=== PATIENT | male | born 1950 | race Caucasian/White ===

== ENCOUNTER 2017-11-20 01:06 | Observation (INO) ==
[2017-11-20] MEDS ORDERED: ASPIRIN PO ONE (01:19)
[2017-11-20] MEDS: NS 1000 ML 1,000 ML IV SCH ×2 (01:20→13:01)
[2017-11-20] MEDS ORDERED: ASPIRIN ONE (01:20)
[2017-11-20] MEDS ORDERED: NITROSTAT SL PRN (01:39)
[2017-11-20 01:40] LABS: BASOPHILS # (AUTO) 0.1 X10^3/uL (0.0-0.1); EOSINOPHILS # (AUTO) 0.6 x10^3/uL (0.0-0.2); EOSINOPHILS % (AUTO) 5.6 % (0.9-2.9); HEMATOCRIT 43.1 % (42.0-54.0); HEMOGLOBIN 15.3 g/dL (13.5-18.0); LYMPHOCYTES # (AUTO) 2.7 X10^3/uL (1.3-2.9); LYMPHOCYTES % (AUTO) 26.8 % (21.0-51.0); MEAN CORPUSCULAR HEMOGLOBIN 32.5 pg (27.0-34.0); MEAN CORPUSCULAR HGB CONC 35.5 g/dL (33.0-35.0); MEAN CORPUSCULAR VOLUME 91.6 fL (80.0-100.0); MEAN PLATELET VOLUME 7.9 fL (7.4-11.0); MONOCYTES # (AUTO) 0.8 x10^3/uL (0.3-0.8); MONOCYTES % (AUTO) 7.7 % (0.0-13.0); NEUTROPHILS # (AUTO) 5.9 x10^3/uL (2.2-4.8); NEUTROPHILS % (AUTO) 58.9 % (42.0-75.0); PLATELET COUNT 192 X10^3/uL (150.0-450.0); RED CELL DISTRIBUTION WIDTH 13.3 % (11.6-16.5)
--- NOTE | 2017-11-20 01:48 | RAD ---
Chest AP portable Indication: Chest pain Comparison: 03/31/2016 Findings: Prominent heart size with chronic lung changes of COPD suggested. Postsurgical change in de generative change of the right shoulder noted. There is no pneumothorax, effusion or consolidation. Impression: Prominent heart size and chronic lung change without other acute chest process Reported By:
--- NOTE | 2017-11-20 01:52 | DR.CP ---
HPI Time Seen Time Seen by Provider: 11/20/17 01:34 Complaint Chief Complaint Doctor Comments: Presenting with chest pain onset at about 220 hrs while in bed. It was located centrally and was going to his back between his shoulder blades. He describes it as being pressure like. He had no SOB, diaphoresis, palpitation or N/V. Source History Provided: Patient PMH PMH Past Medical History: Dyslipidemia and Hypertension Past Surgical History: Yes Surgical History: CABG/Valve Surgery (s/p AVR) Family History Family Medical History: Hypertension Social History Do you use any recreational Drugs:: No ROS Review of Systems Constitutional: No Symptoms Reported Eyes: No Symptoms Reported ENTM: No Symptoms Reported Respiratoy: No Symptoms Reported Cardiovascular: See HPI and Chest Pain Gastrointestinal/Abdominal: No Symptoms Reported Genitourinary: No Symptoms Reported Neurological: No Symptoms Reported Musculoskeletal: No Symptoms Reported Integumentary: No Symptoms Reported Hematologic/Lymphatic: No Symptoms Reported Endocrine: No Symptoms Reported Psychiatric: No Symptoms Reported All Other Systems: Reviewed and Negative PE Vitals Vitals: Temperature 98.3 F Pulse Rate [Apical] 52 Pulse Rate 63 Respiratory Rate 24 Blood Pressure [Left Arm] 135/71 Blood Pressure [Right Arm] 111/68 Blood Pressure 138/67 O2 Sat by Pulse Oximetry 98 General Limitations: No Limitations General Appearance: Alert and In No Apparent Distress Head Head Exam: Normal Inspection and Atraumatic Eyes Eye exam: Normal Appearance, PERRL and EOMI ENT ENT Exam: Normal Exam and Normal Oropharynx Chest Chest Inspection: Normal Inspection, Symmetric Chest Wall Rise and Other ( Vertical, midline thhoracotomy scar) Respiratory Respiratory Exam: Normal Lung Sounds Bilat Cardiovascular Cardiovascular Exam: Regular Rate, Normal Rhythm, +S1, +S2 and Other (end systolic valvular click, loudest at upper left sternal border. ) Abdominal Exam Abdominal Exam: Normal Inspection, Normal Bowel Sounds and Soft Extremities Extremities Exam: Normal Inspection and Normal Capillary Refill Back Back Exam: Normal Inspection Neurologic Neurological Exam: Alert and Oriented X3 Psychiatric Psychiatric Exam: Normal Affect and Normal Mood Skin Skin Exam: Warm and Dry COURSE Reevaluation 1st: Improved Education/Counseling Education/Counseling: Patient, Family and Counseling Educated On: Treatment, Diagnosis, Prognosis and Needs for Follow Up ROR Labs Reviewed Laboratory Results Reviewed?: Yes Result Diagrams: 11/20/17 01:29 11/20/17 01:29 Laboratory: WBC 10.0 X10^3/uL (3.6-10.0) 11/20/17 01: RBC 4.70 X10^6/uL (4.7-6.0) 11/20/17 01:29 Hgb 15.3 g/dL (13.5-18.0) 11/20/17 01: Hct 43.1 % (42.0-54.0) 11/20/17 01: MCV 91.6 fL (80.0-100.0) 11/20/17 01:29 MCH 32.5 pg (27.0-34.0) 11/20/17 01: MCHC 35.5 g/dL (33.0-35.0) H 11/20/17 01: RDW 13.3 % (11.6-16.5) 11/20/17 01: Plt Count 192 X10^3/uL (150.0-450.0) 11/20/17 01: MPV 7.9 fL (7.4-11.0) 11/20/17 01: Neut % (Auto) 58.9 % (42.0-75.0) 11/20/17 01: Lymph % (Auto) 26.8 % (21.0-51.0) 11/20/17 01: [place] % (Auto) 7.7 % (0.0-13.0) 11/20/17 01: Eos % (Auto) 5.6 % (0.9-2.9) H 11/20/17 01: Baso % (Auto) 1.0 % (0.2-1.0) 11/20/17 01:29 Neut # (Auto) 5.9 x10^3/uL (2.2-4.8) H 11/20/17 01: Lymph # (Auto) 2.7 X10^3/uL (1.3-2.9) 11/20/17 01: [place] # (Auto) 0.8 x10^3/uL (0.3-0.8) 11/20/17 01: Eos # (Auto) 0.6 x10^3/uL (0.0-0.2) H 11/20/17 01:29 Baso # (Auto) 0.1 X10^3/uL (0.0-0.1) 11/20/17 01:29 Absolute Nucleated RBC 0.0 /100WBC 11/20/17 01:29 INR Target Range - 11/20/17 01:29 INR 2.22 (0.8-1.3) H 11/20/17 01:29 APTT 38.3 SECONDS (22.9-36.5) H 11/20/17 01:29 PTT Comment - 11/20/17 01:29 Sodium 141 mmol/L (136-145) 11/20/17 01:29 Corrected Sodium 142 mmol/L (136-145) 11/20/17 01:29 Potassium 3.6 mmol/L (3.5-5.1) 11/20/17 01:29 Chloride 104 mmol/L (98-107) 11/20/17 01:29 Carbon Dioxide 30.1 mmol/L (21-32) 11/20/17 01:29 BUN 13 mg/dL (7-18) 11/20/17 01:29 Creatinine 0.87 mg/dL (0.70-1.30) 11/20/17 01:29 Est GFR (MDRD) Af Amer > 60 (>60) 11/20/17 01:29 Est GFR (MDRD) Non-Af > 60 (>60) 11/20/17 01:29 Glucose 123 mg/dL (65-99) H 11/20/17 01:29 Calcium 8.6 mg/dL (8.5-10.1) 11/20/17 01:29 Corrected Calcium TNP 11/20/17 01:29 Magnesium 1.8 mg/dL (1.7-2.9) 11/20/17 01:29 Total Bilirubin 0.30 mg/dL (0.2-1.0) 11/20/17 01:29 AST 21 Units/L (15-37) 11/20/17 01:29 ALT 31 Units/L (12-78) 11/20/17 01:29 Alkaline Phosphatase 74 Units/L (46-116) 11/20/17 01:29 Creatine Kinase 149 Units/L (39-308) 11/20/17 01:29 CK-MB (CK-2) 1.7 ng/mL (0-4.0) 11/20/17 01:29 CK/CKMB % Calc 1.1 % (<4) 11/20/17 01:29 Troponin I < 0.02 ng/mL (0-1.5) 11/20/17 01:29 Total Protein 6.6 g/dL (6.4-8.2) 11/20/17 01:29 Albumin 3.5 g/dL (3.4-5.0) 11/20/17 01:29 Globulin 3.1 g/dL (2.5-4.5) 11/20/17 01:29 Albumin/Globulin Ratio 1.1 Ratio (1.1-2.1) 11/20/17 01:29 XRAY XRAY Interpreted by: Radiologist XRAY Findings: CXR: No acute chest process, prominent heart size + chronic lung changes EKG Rate: 57 Rhythm: NSR Block: None Hypertrophy: LVH Diagnosis Discharge Problem: Chest pain
[2017-11-20 02:00] LABS: BLOOD UREA NITROGEN 13 mg/dL (7-18); CALCIUM 8.6 mg/dL (8.5-10.1); CARBON DIOXIDE 30.1 mmol/L (21-32); CHLORIDE 104 mmol/L (98-107); COR NA(FOR HYPERGLY) 142 mmol/L (136-145); CREATININE 0.87 mg/dL (0.70-1.30); SODIUM 141 mmol/L (136-145); TROPONIN I < 0.02 ng/mL (0-1.5); eGFR NON BLACK RACES > 60 (>60)
[2017-11-20 02:05] LABS: ALANINE AMINOTRANSFERASE 31 Units/L (12-78); ALBUMIN 3.5 g/dL (3.4-5.0); ALKALINE PHOSPHATASE 74 Units/L (46-116); ASPARTATE AMINO TRANSFERASE 21 Units/L (15-37); CKMB % 1.1 % (<4); CREATINE KINASE 149 Units/L (39-308); CREATINE KINASE MB 1.7 ng/mL (0-4.0); MAGNESIUM 1.8 mg/dL (1.7-2.9); TOTAL PROTEIN 6.6 g/dL (6.4-8.2)
--- NOTE | 2017-11-20 03:59 | DR.CP ---
HPI Time Seen Time Seen by Provider: 11/20/17 01:34 PCP Primary Care Physician: JORDAN Calderon Chief Complaint:: CONSTANT LEFT SIDED CHEST PAIN RADIATES UP INTO NECK AND BETWEEN SHOULDER BLADES. O/S @ 2200 LAST HS WHILE RESTING IN BED. DENIES ANY SOB , N/V/D, HEART PALPITATIONS. Self Treatment fo Chief Complaint: NONE Source History Provided: Patient Mode of Arrival Mode of Arrival: Ambulatory Timing Onset of Chief Complaint: 11/19/17 Location Chest Pain Radiation Location: Left Shoulder, Right Shoulder and Neck Associated Signs and Symptoms Associated Signs and Symptoms: None PMH PMH Past Medical History: Yes Past Medical History: Dyslipidemia and Hypertension Past Medical History Comment: THORACIC AORTIC ANEURYSM Past Surgical History: Yes Surgical History: CABG/Valve Surgery (s/p AVR) Past Surgical History Comment: HIP REPLACEMENT Family History History of Family Medical Conditions: Yes Family Medical History: Hypertension Social History Type of Tobacco Use: None Alcohol Use: None Do you use any recreational Drugs:: No Lives With: Spouse Lives Where: Home infectious screening Have you traveled outside the country in the last 6 months?: No Isolation: Standard PE Vitals Vitals: Temperature 98.3 F Pulse Rate [Apical] 52 Pulse Rate 63 Respiratory Rate 24 Blood Pressure [Left Arm] 135/71 Blood Pressure [Right Arm] 111/68 Blood Pressure 138/67 O2 Sat by Pulse Oximetry 98 COURSE Reevaluation 1st: Improved Education/Counseling Education/Counseling: Patient, Family, Education and Counseling Educated On: Treatment, Diagnosis, Prognosis and Needs for Follow Up ROR Labs Reviewed Result Diagrams: 11/20/17 01:29 11/20/17 01:29 Laboratory: WBC 10.0 X10^3/uL (3.6-10.0) 11/20/17 01:29 RBC 4.70 X10^6/uL (4.7-6.0) 11/20/17 01:29 Hgb 15.3 g/dL (13.5-18.0) 11/20/17 01:29 Hct 43.1 % (42.0-54.0) 11/20/17 01:29 MCV 91.6 fL (80.0-100.0) 11/20/17 01:29 MCH 32.5 pg (27.0-34.0) 11/20/17 01:29 MCHC 35.5 g/dL (33.0-35.0) H 11/20/17 01: RDW 13.3 % (11.6-16.5) 11/20/17: Plt Count 192 X10^3/uL (150.0-450.0) 11/20/17 01: MPV 7.9 fL (7.4-11.0) 11/20/17 01: Neut % (Auto) 58.9 % (42.0-75.0) 11/20/17 01: Lymph % (Auto) 26.8 % (21.0-51.0) 11/20/17 01: [place] % (Auto) 7.7 % (0.0-13.0) 11/20/17 01: Eos % (Auto) 5.6 % (0.9-2.9) H 11/20/17: Baso % (Auto) 1.0 % (0.2-1.0) 11/20/17 01: Neut # (Auto) 5.9 x10^3/uL (2.2-4.8) H 11/20/17 01: Lymph # (Auto) 2.7 X10^3/uL (1.3-2.9) 11/20/17 01: [place] # (Auto) 0.8 x10^3/uL (0.3-0.8) 11/20/17 01: Eos # (Auto) 0.6 x10^3/uL (0.0-0.2) H 11/20/17 01: Baso # (Auto) 0.1 X10^3/uL (0.0-0.1) 11/20/17 01: Absolute Nucleated RBC 0.0 /100WBC 11/20/17 01: INR Target Range - 11/20/17 01: INR 2.22 (0.8-1.3) H 11/20/17 01: APTT 38.3 SECONDS (22.9-36.5) H 11/20/17 01: PTT Comment - 11/20/17 01: Sodium 141 mmol/L (136-145) 11/20/17 01: Corrected Sodium 142 mmol/L (136-145) 11/20/17 01:29 Potassium 3.6 mmol/L (3.5-5.1) 11/20/17 01:29 Chloride 104 mmol/L (98-107) 11/20/17 01:29 Carbon Dioxide 30.1 mmol/L (21-32) 11/20/17 01:29 BUN 13 mg/dL (7-18) 11/20/17 01:29 Creatinine 0.87 mg/dL (0.70-1.30) 11/20/17 01:29 Est GFR (MDRD) Af Amer > 60 (>60) 11/20/17 01:29 Est GFR (MDRD) Non-Af > 60 (>60) 11/20/17 01:29 Glucose 123 mg/dL (65-99) H 11/20/17 01:29 Calcium 8.6 mg/dL (8.5-10.1) 11/20/17 01:29 Corrected Calcium TNP 11/20/17 01:29 Magnesium 1.8 mg/dL (1.7-2.9) 11/20/17 01:29 Total Bilirubin 0.30 mg/dL (0.2-1.0) 11/20/17 01:29 AST 21 Units/L (15-37) 11/20/17 01:29 ALT 31 Units/L (12-78) 11/20/17 01:29 Alkaline Phosphatase 74 Units/L (46-116) 11/20/17 01:29 Creatine Kinase 149 Units/L (39-308) 11/20/17 01:29 CK-MB (CK-2) 1.7 ng/mL (0-4.0) 11/20/17 01:29 CK/CKMB % Calc 1.1 % (<4) 11/20/17 01:29 Troponin I < 0.02 ng/mL (0-1.5) 11/20/17 01:29 Total Protein 6.6 g/dL (6.4-8.2) 11/20/17 01:29 Albumin 3.5 g/dL (3.4-5.0) 11/20/17 01:29 Globulin 3.1 g/dL (2.5-4.5) 11/20/17 01:29 Albumin/Globulin Ratio 1.1 Ratio (1.1-2.1) 11/20/17 01:29 Diagnosis Discharge Problem: Chest pain
[2017-11-20 04:50] VITALS: BMI 33.7
[2017-11-20 07:20] LABS: CKMB % 1.1 % (<4); CREATINE KINASE 127 Units/L (39-308); CREATINE KINASE MB 1.4 ng/mL (0-4.0); TROPONIN I < 0.02 ng/mL (0-1.5)
[2017-11-20] MEDS ORDERED: LOVENOX INJ 40 MG SYR SC SCH (09:00)
[2017-11-20] MEDS ORDERED: PROTONIX TAB 40 MG PO SCH (09:00)
[2017-11-20] MEDS ORDERED: SYNTHROID 50 mcg TAB PO SCH (09:00)
[2017-11-20] MEDS ORDERED: PRAVACHOL PO SCH (09:00)
[2017-11-20] MEDS ORDERED: NS 100 ML IV 100 ML IV ONE (11:33)
[2017-11-20 12:23] LABS: CKMB % 1.4 % (<4); CREATINE KINASE 122 Units/L (39-308); CREATINE KINASE MB 1.7 ng/mL (0-4.0); TROPONIN I < 0.02 ng/mL (0-1.5)
[2017-11-20 12:55] VITALS: BP 147/74
--- NOTE | 2017-11-20 14:01 | CT ---
HISTORY: Shortness of breath, chest Study: CT chest with contrast Comparison: Same day radiograph Technique: Multiple axial images of the chest were obtained from the thoracic inlet to the upper abdo men after the administration of IV contrast. Dose reduction techniques including Automated Exposure Control (AEC) and adjustment of mA and kV were utilized. Findings: Sternotomy changes noted related to previous aortic valve replacement. There is aneurysmal dilation o f ascending aorta measuring up to 5.3 cm measured perpendicular to the plane of blood flow. No eviden ce of dissection or intramural hematoma. Heart size within normal limits. No pericardial identified. Lungs are clear without infiltrate, or pneumothorax. Airways are patent no mass or adenopathy is iden tified. Multilevel discogenic degenerative changes and spondylosis is seen throughout the thoracic and lumbar spine. The visualized portions of the upper abdomen are grossly unremarkable. IMPRESSION: 1. Aneurysmal dilation of the ascending aorta measuring 5.3 cm. No evidence of dissection. 2. Post aortic valve repair. 3. No acute disease identified. Reported By:
[2017-11-20] MEDS ORDERED: COUMADIN TAB 7.5 MG PO SCH (21:00)
[2017-11-20] MEDS ORDERED: TOPROL XL PO SCH (21:00)
[2017-11-20] MEDS ORDERED: KLONOPIN TAB 0.5 MG PO SCH (21:00)
[2017-11-20] MEDS ORDERED: MOBIC TAB 15 MG PO SCH (21:00)
--- NOTE | 2018-01-08 22:50 | DR.CARTERS ---
Short Stay Summary - Short Stay Summary for: Short Stay Summary for Date of:: 11/20/17 - Admission Date Date of Admission: 11/20/17 - Discharge Date Discharge Date: 11/20/17 - Admission Diagnoses (1) Chest pain Status: Acute (2) Hyperlipidemia Status: Chronic (3) Hypertension Status: Chronic - Hospital Course Hospital Course: Mr. Milian presented to ER with complaints of chest pain that radiated up into neck and between shoulder blades. Patient rated pain a 5 on a scale of 0-10. Chest Xray obtained suggest COPD changes. EKG obtained: rate of 57 Sinus Rhythm with prolonged ME interval and abnormal R wave. Patient placed on continuous athletic monitor and supplemental oxygen per nasal canula @ 2 liters. Cardiac enzymes obtained. Patient given an ASA 325mg PO X 1 as well as NTG 0.4mg SL X 1. Patient admitted for observation. We continued to monitor patient with cardiac enzyme series and collection of EKG series. Patient placed on continuous athletic monitor and supplemental oxygen. Surgical History: CABG/Valve Surgery (s/p AVR). Medications: ASA 325mg po x1, Nitro Stat 0.4 mg SL Q 5 m PRN Chest Pain, Normal Saline 1000mls @ 75 mls HR, Lovenox 40mg SC Daily, Synthroid 50mcg PO Daily, Protonix 40mg PO Daily, Pravachol 40mg PO Daily, Klonopin 0.5mg PO HS, Mobic 15mg PO HS, Toprol XL 100mg PO HS, Coumadin 7.5mg PO HS. Abnormal Labs: Glucose 123. INR: 2.22. Chest Xray: 1. Aneurysmal dilation of the ascending aorta measuring 5.3 cm. No evidence of dissection. 2. Post aortic valve repair. 3. No acute disease identified. Patient was seen later that day and reported chest pain was resolved. He denied chest pain or shortness of breath. Cardiac enzymes and ekg's wnl. We planned for discharge. Instructions for medications and follow up were discussed with patient and family, both voiced understanding. Patient discharged home in stable condition with family. - Discharge Medications Discharge Medications: Home Medication List levothyroxine 1 tab PO DAILY 11/20/17 [History] pravastatin 1 tab PO DAILY 11/20/17 [History] Prescriptions: - Discharge Plan Disposition: 01 HOME, SELF-CARE Condition: Stable - Follow up/Referrals Follow up/Referrals: Terrell Raines [Primary Care Provider] - 12/03/17 2:20 pm - Instructions Instructions: How to Take Your Blood Pressure, [id number], What You Need to Know About Warfarin, Nonspecific Chest Pain, [id number], Hypertension, [id number] Additional Instructions: DIET TOLERATED. ACTIVITY TOLERATED. Forms: Patient Portal
== END 2017-11-20 16:15 | disposition home or self-care (01) ==
LOC: ER 01:07 → MED/SURG 01:07
PROVIDERS: ADMIT Internal Medicine; ATTEND Internal Medicine
DX: R07.89 Other chest pain; Z79.899 Other long term (current) drug therapy; R94.31 Abnormal electrocardiogram [ECG] [EKG]; Z79.01 Long term (current) use of anticoagulants; I10 Essential (primary) hypertension; E78.2 Mixed hyperlipidemia
CPT/HCPCS: 36415; 71010; 71045; 71260; 80053; 82550; 82553; 83735; 84484; 85025; 85610; 85730; 93005; 93041; 96365; 96367; 99284; A4216; A4222; G0378; J7030; J7050

== ENCOUNTER 2021-12-27 13:54 | Observation (INO) ==
[2021-12-27 14:07] VITALS: BMI 30.7
[2021-12-27] MEDS ORDERED: NS 1,000 ML IV 1,000 ML ONE ×2 (14:11→15:15)
[2021-12-27] MEDS ORDERED: NS 1,000 ML IV 1,000 ML IV ONE ×2 (14:22→15:17)
--- NOTE | 2021-12-27 14:26 | DR.DIZZY ---
HPI Time seen Time Seen by Provider: 12/27/21 14:25 PCP Primary Care Physician: LESTER HPI Comment HPI Comment: 71 y/o y/o male presented here as a referral from Dr. Tavera's office. He states that he has been loosing weight, has poor appetite, polydipsia and polyuria. in the last 6 moths. He felt so bad over the last few days that he went to see Dr. Tavera yesterday. He was sent over to outpt. lab yesterday. Upon reviewing those labs. he was sent to get outpt. IVF yesterday. His BS was 490, with a BUN at 32 and Cr. at 1.79. He was started on Metformin and Glipizide yesterday according to Dr. Tavera. He was seen in f/u in the office today with labs (Glucose- 296, BUN- 46, Cr- 2.27) and still hypotensive today. He has continued to take his BP meds. in the interim. Complaint Chief Complaint:: CK BP AT HOME TODAY AND IT WAS LOW, 88/57. PT STATES HE IS FEELING NAUSEATED, HEADACHE, LIGHT HEADED, DENIES FLU EXPOSURE Self Treatment fo Chief Complaint: TAKES BP MEDS AND DID TAKE HIS BP MEDS THIS MORNING. COVID-19 Coronavirus risk:travel/contact w/high risk person: No Has patient experienced Coronavirus symptoms: No Nurses Notes Reviewed Nurses Notes Review: Yes Source History Provided: Patient Mode of Arrival Mode of Arrival: Ambulatory Timing Onset of Chief Complaint: 12/25/21 Came on: Gradually Duration Duration: Constant Duration: Weeks Location of Weakness Weakness Location: Generalized Context Onset: At rest Does pt take pot. toxic medication?: No History of: DM Stroke Symptoms: None Modifying factors Worsens: Nothing Associated signs and symptoms Associated Signs and Symptoms: Weak PMH PMH Past Medical History: Yes Past Medical History: CHF, Diabetes, Dyslipidemia and Hypertension Past Medical History Comment: PROSTATE CANCER IN REMISSION X5 YRS Past Surgical History: Yes Surgical History: Joint Replacement and Ortho Surgery Past Surgical History Comment: MECHANICAL VALVE REPLACEMENT, PROSTATE CANCER REMOVAL Family History History of Family Medical Conditions: Yes Family Medical History: Cancer, [place], Coronary Artery Disease, Heart Failure and Hypertension Social History Does any household member use tobacco: No Alcohol Use: DAILY Do you use any recreational Drugs:: No Lives With: Spouse Lives Where: Home Travel Risk Coronavirus risk:travel/contact w/high risk person: No Has patient experienced Coronavirus symptoms: No Infectious screening In the last 2 months have you had wt loss of >10#?: NO Have you had fever, night sweats or hemotysis?: No Have you traveled outside the country in the last 6 months?: No Isolation: Standard ROS Review of Systems Constitutional: Malaise, Weakness, Loss of Appetite and Other (polydipsia) Eyes: No Symptoms Reported ENTM: No Symptoms Reported Respiratoy: No Symptoms Reported Cardiovascular: No Symptoms Reported Gastrointestinal/Abdominal: No Symptoms Reported Genitourinary: Other (polyuria) Neurological: No Symptoms Reported Musculoskeletal: No Symptoms Reported Integumentary: No Symptoms Reported Hematologic/Lymphatic: No Symptoms Reported Endocrine: No Symptoms Reported Psychiatric: No Symptoms Reported All Other Systems: Reviewed and Negative PE Vital Signs Vitals: Temperature 99.0 F Pulse Rate 75 Respiratory Rate 18 Blood Pressure [Left Arm] 169/96 Blood Pressure 84/52 O2 Sat by Pulse Oximetry 93 General Limitations: No Limitations General Appearance: Alert and In No Apparent Distress Head Head Exam: Normal Inspection, Atraumatic and Normocephalic Eyes Eye exam: Normal Appearance and EOMI ENT ENT Exam: Normal Exam, Normal Oropharynx and Normal External Ear Exam Neck Neck Exam: Normal Inspection, Full ROM and Trachea Midline Chest Chest Inspection: Normal Inspection and Symmetric Chest Wall Rise Respiratory Respiratory Exam: Normal Lung Sounds Bilat Cardiovascular Cardiovascular Exam: Regular Rate, Normal Rhythm, Normal Heart Sounds, +S1 and +S2 Abdominal Exam Abdominal Exam: Normal Inspection, Normal Bowel Sounds and Soft Rectal Rectal Exam: Deferred Extremeties Extremities Exam: Normal Inspection and Full ROM Back Back Exam: Normal Inspection and Full ROM Neurologic Neurological Exam: Alert and Oriented X3 Psychiatric Psychiatric Exam: Normal Affect and Normal Mood Skin Skin Exam: Dry, Intact and Normal Color COURSE Treatment Treatment: I discussed his test results with him and his daughter. I have also spoken with his PCP (Dr. Tavera). Admit orders have been written. I am with olding his BP meds, Metformin and Mobic. Reevaluation 1st: Unchanged Education/Counseling Education/Counseling: Patient, Family, Education and Counseling Educated On: Treatment, Diagnosis, Prognosis and Needs for Follow Up ROR Labs Reviewed Laboratory Results Reviewed?: Yes Result Diagrams: 12/27/21 14:20 Laboratory: WBC 15.5 X10^3/uL (3.6-10.0) H 12/27/21 14:20 RBC 4.43 X10^6/uL (4.7-6.0) L 12/27/21 14:20 Hgb 14.0 g/dL (13.5-18.0) 12/27/21 14:20 Hct 39.1 % (42.0-54.0) L 12/27/21 14:20 MCV 88.2 fL (80.0-100.0) 12/27/21 14:20 MCH 31.6 pg (27.0-34.0) 12/27/21 14:20 MCHC 35.8 g/dL (33.0-35.0) H 12/27/21 14:20 RDW 12.4 % (11.6-16.5) 12/27/21 14:20 Plt Count 243 X10^3/uL (150.0-450.0) 12/27/21 14:20 MPV 8.4 fL (7.4-11.0) 12/27/21 14:20 Neut % (Auto) 77.3 % (42.0-75.0) H 12/27/21 14:20 Lymph % (Auto) 12.3 % (21.0-51.0) L 12/27/21 14:20 [place] % (Auto) 7.1 % (0.0-13.0) 12/27/21 14:20 Eos % (Auto) 2.7 % (0.9-2.9) 12/27/21 14:20 Baso % (Auto) 0.6 % (0.2-1.0) 12/27/21 14:20 Neut # (Auto) 12.0 x10^3/uL (2.2-4.8) H 12/27/21 14:20 Lymph # (Auto) 1.9 X10^3/uL (1.3-2.9) 12/27/21 14:20 [place] # (Auto) 1.1 x10^3/uL (0.3-0.8) H 12/27/21 14:20 Eos # (Auto) 0.4 x10^3/uL (0.0-0.2) H 12/27/21 14:20 Baso # (Auto) 0.1 X10^3/uL (0.0-0.1) 12/27/21 14:20 Absolute Nucleated RBC 0.0 /100WBC 12/27/21 14:20 Creatine Kinase 104 Units/L (39-308) 12/27/21 14:20 Troponin I High Sens 11.0 ng/L (4.0-60.0) 12/27/21 14:20 SARS-CoV-2 (PCR) Negative (NEGATIVE) 12/27/21 14:40 Influenza Type A (PCR) Negative (NEGATIVE) 12/27/21 14:40 Influenza Type B (PCR) Negative (NEGATIVE) 12/27/21 14:40 RSV (PCR) Negative (NEGATIVE) 12/27/21 14:40 EKG Rate: 78 [place]: Normal Rhythm: NSR Block: None Hypertrophy: LVH Opioid Opioid Risk Tool Age ([place]annon box if 16-45): No History of Preadolescent Sexual Abuse: No Total: 0 Total Score Risk Category: Low Risk Copyright: [facility] predicting aberrant behaviors Discharge Plan Diagnosis Discharge Problem: Azotemia, Neutrophilic leukocytosis Type 2 diabetes mellitus with hyperglycemia Qualifiers: Diabetes mellitus terminal manager insulin use: without terminal manager use Qualified Code(s): E11.65 - Type 2 diabetes mellitus with hyperglycemia Benign prostatic hyperplasia Qualifiers: Lower urinary tract symptom presence: symptoms present Lower urinary tract symp romario detail: urinary frequency Qualified Code(s): N40.1 - Benign prostatic hyperplasia with lower urinary tract symptoms CAD (coronary artery disease) Qualifiers: Coronary Disease-Associated Artery/Lesion type: [place] artery [place] vs. transplanted heart: [place] heart Associated angina: without angina Qualified Code(s): I25.10 - Atherosclerotic heart disease of [place] coronary artery without angina pectoris Hypotension Qualifiers: Hypotension type: idiopathic hypotension Qualified Code(s): I95.0 - Idiopathic hypotension Discharge Plan Patient Disposition: 09 ADMITTED INPATIENT Condition: Stable Prescriptions: No Action meloxicam 15 MG tablet 15 mg PO HS clonazepam 0.5 MG tablet 0.5 mg PO HS metoprolol succinate 100 MG tablet extended release 24 hr 1 tab PO HS metformin 500 mg tablet 500 mg PO BID clonidine HCl 0.1 mg tablet 0.1 mg PO BID chlorthalidone 25 mg tablet 25 mg PO QDAY amlodipine 5 mg tablet 5 mg PO QDAY glipizide 2.5 mg tablet extended release 24hr 2.5 mg PO QDAY levothyroxine 50 mcg tablet 50 mcg PO QDAY pantoprazole 40 mg tablet,delayed release (DR/EC) 40 mg PO QDAY warfarin 5 mg tablet 5 mg PO QDAY oxybutynin chloride 5 mg tablet extended release 24hr 5 mg PO QDAY levofloxacin 750 mg tablet 750 mg PO QDAY Rx Instructions: STARTED ON 12/26/21 rosuvastatin 20 mg tablet 20 mg PO QPM Health Concerns: Post Hospitalization: new medications and changes needed to prevent readmission or further decline. Pt educated and given instructions on all concerns. Plan of Treatment: Continue with present treatment and follow up plan. Pt is to keep follow up appointment as instructed and take medications as ordered. Orders to Discharge Patient Discharge Orders: Transfer (Routine); Ordered 12/27/21 Ordered By: QUIN HESS Follow ups/Referrals Follow ups/Referrals: Andrea Tavera [Primary Care Provider] - 3 days
[2021-12-27 14:50] LABS: BASOPHILS # (AUTO) 0.1 X10^3/uL (0.0-0.1); BASOPHILS % (AUTO) 0.6 % (0.2-1.0); EOSINOPHILS # (AUTO) 0.4 x10^3/uL (0.0-0.2); EOSINOPHILS % (AUTO) 2.7 % (0.9-2.9); HEMATOCRIT 39.1 % (42.0-54.0); LYMPHOCYTES # (AUTO) 1.9 X10^3/uL (1.3-2.9); LYMPHOCYTES % (AUTO) 12.3 % (21.0-51.0); MEAN CORPUSCULAR HEMOGLOBIN 31.6 pg (27.0-34.0); MEAN CORPUSCULAR HGB CONC 35.8 g/dL (33.0-35.0); MEAN CORPUSCULAR VOLUME 88.2 fL (80.0-100.0); MEAN PLATELET VOLUME 8.4 fL (7.4-11.0); MONOCYTES # (AUTO) 1.1 x10^3/uL (0.3-0.8); MONOCYTES % (AUTO) 7.1 % (0.0-13.0); NEUTROPHILS % (AUTO) 77.3 % (42.0-75.0); RED BLOOD COUNT 4.43 X10^6/uL (4.7-6.0); RED CELL DISTRIBUTION WIDTH 12.4 % (11.6-16.5); WHITE BLOOD COUNT 15.5 X10^3/uL (3.6-10.0)
--- NOTE | 2021-12-27 16:21 | RAD ---
HISTORYHYPOTENSION Relevant Clinical InformationSTUDYCHEST, 1 VIEWCOMPARISONNone available.FINDINGSThe trachea is midline. The cardiac silhouette is mildly enlarged; status post median sternotomy. The right hemidiaphragm is elevated. Changes of chronic bronchitis/COPD are identified on this exam. The lungs are clear without focal infiltrate or effusion. The bony thorax is unremarkable.IMPRESSIONNo acute cardiopulmonary findings or changes. Enlarged cardiac silhouette. Changes of chronic bronchitis/COPD.Electronically signed by: CARLI SCHULTZ III (Dec 27, 2021 16:18:57)
[2021-12-27] MEDS ORDERED: LEVAQUIN TAB 750 MG PO SCH (16:28)
[2021-12-27] MEDS ORDERED: SYNTHROID 50 mcg TAB PO SCH (16:28)
[2021-12-27] MEDS ORDERED: GLUCOTROL PO SCH (17:00)
[2021-12-27 17:40] LABS: INR 2.58 (0.8-1.3)
[2021-12-27] MEDS: NS 1,000 ML IV 1,000 ML IV SCH (17:48)
[2021-12-27 18:16] LABS: BILIRUBIN,URINE NEGATIVE (NEGATIVE); BLOOD/HEMOGLOBIN,URINE 1+ (NEGATIVE); GLUCOSE, URINE NEGATIVE (NEGATIVE); KETONES,URINE NEGATIVE (NEGATIVE); LEUKOCYTE ESTERASE ,URINE 3+ (NEGATIVE); NITRITES,URINE NEGATIVE (NEGATIVE); PROTEIN,URINE 1+ (NEGATIVE); UROBILINOGEN,URINE NORMAL (NORMAL)
[2021-12-27 18:25] LABS: APPEARANCE,URINE HAZY (CLEAR); BACTERIA,URINE TRACE /HPF (NEGATIVE); COLOR,URINE YELLOW (YELLOW); SQUAMOUS EPITHELIAL CELL,UR RARE /HPF (NEGATIVE)
[2021-12-27] MEDS: TOPROL XL PO SCH (20:18)
[2021-12-27] MEDS: SNACK - Diabetic Appropriate PO SCH (20:41)
[2021-12-27] MEDS ORDERED: KLONOPIN TAB 0.5 MG PO SCH (21:00)
[2021-12-28] MEDS: NS 1,000 ML IV 1,000 ML IV SCH ×5 (01:44→16:36)
[2021-12-28 05:11] LABS: BASOPHILS # (AUTO) 0.1 X10^3/uL (0.0-0.1); BASOPHILS % (AUTO) 1.5 % (0.2-1.0); EOSINOPHILS # (AUTO) 0.5 x10^3/uL (0.0-0.2); EOSINOPHILS % (AUTO) 5.2 % (0.9-2.9); HEMOGLOBIN 12.3 g/dL (13.5-18.0); LYMPHOCYTES # (AUTO) 1.8 X10^3/uL (1.3-2.9); LYMPHOCYTES % (AUTO) 20.1 % (21.0-51.0); MEAN CORPUSCULAR HEMOGLOBIN 31.4 pg (27.0-34.0); MEAN CORPUSCULAR HGB CONC 35.3 g/dL (33.0-35.0); MEAN CORPUSCULAR VOLUME 88.8 fL (80.0-100.0); MONOCYTES # (AUTO) 0.8 x10^3/uL (0.3-0.8); MONOCYTES % (AUTO) 8.9 % (0.0-13.0); NEUTROPHILS # (AUTO) 5.7 x10^3/uL (2.2-4.8); NEUTROPHILS % (AUTO) 64.3 % (42.0-75.0); RED BLOOD COUNT 3.94 X10^6/uL (4.7-6.0); RED CELL DISTRIBUTION WIDTH 12.7 % (11.6-16.5); WHITE BLOOD COUNT 8.8 X10^3/uL (3.6-10.0)
[2021-12-28 05:21] LABS: ALANINE AMINOTRANSFERASE 30 Units/L (12-78); ALKALINE PHOSPHATASE 76 Units/L (46-116); ASPARTATE AMINO TRANSFERASE 31 Units/L (15-37); BLOOD UREA NITROGEN 37 mg/dL (7-18); CALCIUM 7.5 mg/dL (8.5-10.1); CARBON DIOXIDE 21.9 mmol/L (21-32); CHLORIDE 103 mmol/L (98-107); COR CA(FOR HYPOALB) 8.3 mg/dL (8.5-10.1); COR NA(FOR HYPERGLY) 136 mmol/L (136-145); CREATININE 1.21 mg/dL (0.70-1.30); SODIUM 133 mmol/L (136-145); eGFR NON BLACK RACES > 60 (>60)
[2021-12-28] MEDS ORDERED: GLUCOTROL PO SCH (07:00)
[2021-12-28] MEDS: CRESTOR TAB 10 MG PO SCH (08:05)
[2021-12-28] MEDS ORDERED: DUONEB 0.5 MG/3 MG (3 mL) NEB PRN (08:06)
[2021-12-28] MEDS: LEVAQUIN TAB 750 MG PO SCH (08:07)
[2021-12-28] MEDS: SYNTHROID 50 mcg TAB PO SCH (08:07)
[2021-12-28] MEDS: PROTONIX TAB 40 MG PO SCH (08:07)
--- NOTE | 2021-12-28 08:12 | DR.H&P ---
H&P History & Physical for Day of: H&P Date: 12/27/21 Chief Complaint Chief Complaint: Lightheaded, weakness Headache, nausea, decreased appetite Allergies Allergies Allergy/AdvReac Type Severity Reaction Status Date / Time No Known Drug Allergies Allergy Verified 07/26/21 10:25 History of Present Illness History of Present Illness: Pt is a 71 year old male past medical history Hypertension, Valvular heart disease, DMT2, presenting with acute hypotension after he checked his blood pressure at home and noticed it was low at 80s/50s. He also reports feeling lightheaded, nausea, headache, decreased appetite, and generalized weakness. In the ED, his blood pressure was noted to be 76/50. Labs/imaging: Wbc 15.5, Hgb 14, Plt 243, INR 2.58, Na 129, K 4.8, Creatinine 2.27, Glucose 296, Troponin negative, UA recommends culture, Urine culture pending, Acetone negative, COVID19/Flu/RSV negative, CXR was obtained: No acute cardiopulmonary findings or changes. Enlarged cardiac silhouette. Changes of chronic bronchitis/COPD. Pt received 2L bolus normal saline. Will start patient on IVF NS@125ml/h, antibiotics: IV Levaquin. Pt with A1c of 13.2, uncontrolled diabetes that is likely related to his symptoms and dehydration. Will start on glipizide and SSI. Pt does have RENETTA, will trend renal function, hold nephrotoxic agents. Hold blood pressure medication until blood pressure has stabilized. Restart all other home medications. Will continue to closely monitor and follow up labs in the morning. Past Medical History Past Medical History: CHF, Diabetes, Dyslipidemia and Hypertension Additional Medical History: Valvular Heart Disease, Thoracic Aortic Aneurysm, BPH, Elevated PSA, Previous Blood Transfusion Past Surgical History Surgical History: AAA Repair, CABG/Valve Surgery, Joint Replacement and Ortho Surgery Additional Surgical History: Left Hip Replacement, Bilateral Shoulder Surgery, Mechanical Heart Valve Family History Family Medical History: Cancer, [place], Coronary Artery Disease, Heart Failure and Hypertension Social History Does patient currently use any type of tobacco product: No Have you used tobacco products in the last 12 months: No Type of Tobacco Use: None Does any household member use tobacco: No Alcohol Use: DAILY Drug Use: None Medications Home Medications: No Known Drug Allergies Allergy (Verified 07/26/21 10:25) CONTINUE taking the following medications amlodipine 5 mg tablet 5 mg PO QDAY 12/27/21 [History] chlorthalidone 25 mg tablet 25 mg PO QDAY 12/27/21 [History] clonidine HCl 0.1 mg tablet 0.1 mg PO BID 12/27/21 [History] glipizide 2.5 mg tablet, extended release 24 hr 2.5 mg PO QDAY 12/27/21 [History] levofloxacin 750 mg tablet 750 mg PO QDAY 12/27/21 [History] levothyroxine 50 mcg tablet 50 mcg PO QDAY 12/27/21 [History] metformin 500 mg tablet 500 mg PO BID 12/27/21 [History] oxybutynin chloride 5 mg tablet,extended release 24 hr 5 mg PO QDAY 12/27/21 [History] pantoprazole 40 mg tablet,delayed release 40 mg PO QDAY 12/27/21 [History] rosuvastatin 20 mg tablet 20 mg PO QPM 12/27/21 [History] warfarin 5 mg tablet 5 mg PO QDAY 12/27/21 [History] Labs Result Diagrams: 12/28/21 04:48 12/28/21 04:48 Labs: Laboratory WBC 8.8 X10^3/uL (3.6-10.0) 12/28/21 04:48 RBC 3.94 X10^6/uL (4.7-6.0) L 12/28/21 04:48 Hgb 12.3 g/dL (13.5-18.0) L 12/28/21 04:48 Hct 35.0 % (42.0-54.0) L 12/28/21 04:48 MCV 88.8 fL (80.0-100.0) 12/28/21 04:48 MCH 31.4 pg (27.0-34.0) 12/28/21 04:48 MCHC 35.3 g/dL (33.0-35.0) H 12/28/21 04:48 RDW 12.7 % (11.6-16.5) 12/28/21 04:48 Plt Count 186 X10^3/uL (150.0-450.0) 12/28/21 04:48 MPV 8.0 fL (7.4-11.0) 12/28/21 04:48 Neut % (Auto) 64.3 % (42.0-75.0) 12/28/21 04:48 Lymph % (Auto) 20.1 % (21.0-51.0) L 12/28/21 04:48 [place] % (Auto) 8.9 % (0.0-13.0) 12/28/21 04:48 Eos % (Auto) 5.2 % (0.9-2.9) H 12/28/21 04:48 Baso % (Auto) 1.5 % (0.2-1.0) H 12/28/21 04:48 Neut # (Auto) 5.7 x10^3/uL (2.2-4.8) H 12/28/21 04:48 Lymph # (Auto) 1.8 X10^3/uL (1.3-2.9) 12/28/21 04:48 [place] # (Auto) 0.8 x10^3/uL (0.3-0.8) 12/28/21 04:48 Eos # (Auto) 0.5 x10^3/uL (0.0-0.2) H 12/28/21 04:48 Baso # (Auto) 0.1 X10^3/uL (0.0-0.1) 12/28/21 04:48 Absolute Nucleated RBC 0.0 /100WBC 12/28/21 04:48 PT 26.6 SECONDS (11.8-14.3) 12/27/21 14:20 INR Target Range - 12/27/21 14:20 INR 2.58 (0.8-1.3) H 12/27/21 14:20 Sodium 133 mmol/L (136-145) L 12/28/21 04:48 Corrected Sodium 136 mmol/L (136-145) 12/28/21 04:48 Potassium 4.3 mmol/L (3.5-5.1) 12/28/21 04:48 Chloride 103 mmol/L (98-107) 12/28/21 04:48 Carbon Dioxide 21.9 mmol/L (21-32) 12/28/21 04:48 BUN 37 mg/dL (7-18) H 12/28/21 04:48 Creatinine 1.21 mg/dL (0.70-1.30) 12/28/21 04:48 Est GFR (MDRD) Af Amer > 60 (>60) 12/28/21 04:48 Est GFR (MDRD) Non-Af > 60 (>60) 12/28/21 04:48 Glucose 220 mg/dL (65-99) H 12/28/21 04:48 POC Glucose (mg/dL) 202 mg/dL (65-99) H 12/28/21 05:23 Calcium 7.5 mg/dL (8.5-10.1) L 12/28/21 04:48 Corrected Calcium 8.3 mg/dL (8.5-10.1) L 12/28/21 04:48 Total Bilirubin 0.40 mg/dL (0.2-1.0) 12/28/21 04:48 AST 31 Units/L (15-37) 12/28/21 04:48 ALT 30 Units/L (12-78) 12/28/21 04:48 Alkaline Phosphatase 76 Units/L (46-116) 12/28/21 04:48 Creatine Kinase 104 Units/L (39-308) 12/27/21 14:20 Troponin I High Sens 11.0 ng/L (4.0-60.0) 12/27/21 14:20 Total Protein 6.0 g/dL (6.4-8.2) L 12/28/21 04:48 Albumin 3.0 g/dL (3.4-5.0) L 12/28/21 04:48 Globulin 3.0 g/dL (2.5-4.5) 12/28/21 04:48 Albumin/Globulin Ratio 1.0 Ratio (1.1-2.1) L 12/28/21 04:48 Total PSA < 0.13 ng/mL (0.13-4.0) L 12/27/21 14:20 Specimen Type Clean catch urine 12/27/21 18:00 Urine Color Yellow (YELLOW) 12/27/21 18:00 Urine Appearance Hazy (CLEAR) 12/27/21 18:00 Urine pH 5.0 (5.0 - 8.0) 12/27/21 18:00 Ur Specific [place] 1.020 (1.000-1.030) 12/27/21 18:00 Urine Protein 1+ (NEGATIVE) 12/27/21 18:00 Urine Glucose (UA) Negative (NEGATIVE) 12/27/21 18:00 Urine Ketones Negative (NEGATIVE) 12/27/21 18:00 Urine Blood 1+ (NEGATIVE) 12/27/21 18:00 Urine Nitrite Negative (NEGATIVE) 12/27/21 18:00 Urine Bilirubin Negative (NEGATIVE) 12/27/21 18:00 Urine Urobilinogen Normal (NORMAL) 12/27/21 18:00 Ur Leukocyte Esterase 3+ (NEGATIVE) 12/27/21 18:00 Urine RBC 5-10 /HPF (0-3) A 12/27/21 18:00 Urine WBC 20-30 /HPF (0-5) A 12/27/21 18:00 Ur Squamous Epith Cells Rare /HPF (NEGATIVE) 12/27/21 18:00 Urine Bacteria Trace /HPF (NEGATIVE) 12/27/21 18:00 Ur Culture Indicated? Yes/culture set up 12/27/21 18:00 Acetone, Semi-Quant Negative (NEGATIVE) 12/27/21 14:20 SARS-CoV-2 (PCR) Negative (NEGATIVE) 12/27/21 14:40 Influenza Type A (PCR) Negative (NEGATIVE) 12/27/21 14:40 Influenza Type B (PCR) Negative (NEGATIVE) 12/27/21 14:40 RSV (PCR) Negative (NEGATIVE) 12/27/21 14:40 Review of Systems Constitutional: Weakness Eyes: No Symptoms Reported ENT: No Symptoms Reported Respiratory: No Symptoms Reported Cardiovascular: No Symptoms Reported Gastrointestinal: Nausea Genitourinary: No Symptoms Reported Musculoskeletal: No Symptoms Reported Skin: No Symptoms Reported Neurological: No Symptoms Reported Physical Exam Vital Signs: Temperature 98.3 F Pulse Rate 70 Respiratory Rate 10 Blood Pressure [Left Arm] 169/96 Blood Pressure 112/60 O2 Sat by Pulse Oximetry 92 Oriented: Normal Eyes: Normal Ear: Normal Nose: Normal Throat: Normal Respiratory: Clear Throughout Cardiovascular: Normal : Normal Auscultation: Bowel Sounds: Normal Palpation: Normal Tenderness: Normal Skin: Decreased [place] Musculoskeletal: Normal Psychiatric: Normal Mood Description: Calm and Appropriate Affect: Normal Speech Pattern: Clear and Appropriate Assessment/Plan (1) Acute hypotension: Status: Acute Plan: Hold blood pressure medications IVF NS@125ml/h (2) Dehydration: Status: Acute (3) Type 2 diabetes mellitus with hyperglycemia: Qualifiers: Diabetes mellitus correction insulin use: without division human resources manager use Qualified Code(s): E11.65 - Type 2 diabetes mellitus with hyperglycemia Status: Acute Plan: Start glipizide, continue SSI (4) Cystitis: Status: Acute Plan: IV Levaquin (5) Hyponatremia: Status: Acute Plan: IVF NS (6) Acute kidney injury: Status: Acute Plan: IVF, monitor renal function, hold nephrotoxic agents Review H&P Reviewed: Yes Patient was examined?: Yes
[2021-12-28] MEDS ORDERED: RESTORIL CAP 15 MG PO PRN (08:25)
[2021-12-28] MEDS: NORVASC TAB 5 MG PO SCH (08:51)
[2021-12-28] MEDS ORDERED: GLUCOTROL XL 24-HR PO SCH ×2 (09:00)
[2021-12-28] MEDS: COUMADIN TAB 5 MG (JANTOVEN) PO SCH (10:58)
--- NOTE | 2021-12-28 13:07 | PCM.PROG ---
Progress Note Progress Note for Day of Date of Exam: 12/28/21 Subjective Subjective: Pt is a 71 year old male past medical history Hypertension, Valvular heart disease, DMT2, admitted for acute hypotension, dehydration, acute kidney injury, hyponatremia, hyperglycemia, and cystitis. This morning he reports feeling a little better. His blood pressure and electrolytes including sodium and glucose have improved. No acute events overnight. Labs/imaging: Wbc 8.8, Hgb 12.3, Plt 186, Na 133, K 4.3, Creatinine 1.21, Glucose 220, Urine culture no growth to date. Pt is currently receiving IVF NS@125ml/h, antibiotics: IV Levaquin, bronchodilators, SSI. He was started on glipizide. His renal function has significantly improved and returned to baseline. Will now start on metformin to help with glycemic control. Restart norvasc but hold other blood pressure medication until blood pressure has further stabilized. All other home medications have been resumed. Will continue to closely monitor and follow up labs in the morning. Past Medical Family Social History Allergies: Allergies No Known Drug Allergies Allergy (Verified 07/26/21 10:25) Review of Systems ROS changes noted: See HPI Vital Signs and I&O's Vital Signs: Temperature 98.5 F Pulse Rate 68 Respiratory Rate 22 Blood Pressure [Left Arm] 169/96 Blood Pressure 108/65 O2 Sat by Pulse Oximetry 94 Intake and Output: Intake & Output 12/25/21 12/26/21 12/27/21 12/28/21 23:59 23:59 23:59 23:59 Intake Total 2100 / 2100 Output Total 100 / 100 Balance 1999 Physical Exam Oriented: Normal Eyes: Normal Ear: Normal Nose: Normal Throat: Normal Respiratory: Normal Cardiovascular: Normal : Normal Auscultation: Bowel Sounds: Normal Tenderness: Normal Skin: Normal Musculoskeletal: Normal Psychiatric: Normal Mood Description: Calm and Appropriate Affect: Normal Speech Pattern: Clear and Appropriate Laboratory and Diagnostics Result Diagrams: 12/28/21 04:48 12/28/21 04:48 Labs: 12/27/21 18:00 Urine,Clean Catch Urine Culture - Preliminary Laboratory WBC 8.8 X10^3/uL (3.6-10.0) 12/28/21 04:48 RBC 3.94 X10^6/uL (4.7-6.0) L 12/28/21 04:48 Hgb 12.3 g/dL (13.5-18.0) L 12/28/21 04:48 Hct 35.0 % (42.0-54.0) L 12/28/21 04:48 MCV 88.8 fL (80.0-100.0) 12/28/21 04:48 MCH 31.4 pg (27.0-34.0) 12/28/21 04:48 MCHC 35.3 g/dL (33.0-35.0) H 12/28/21 04:48 RDW 12.7 % (11.6-16.5) 12/28/21 04:48 Plt Count 186 X10^3/uL (150.0-450.0) 12/28/21 04:48 MPV 8.0 fL (7.4-11.0) 12/28/21 04:48 Neut % (Auto) 64.3 % (42.0-75.0) 12/28/21 04:48 Lymph % (Auto) 20.1 % (21.0-51.0) L 12/28/21 04:48 [place] % (Auto) 8.9 % (0.0-13.0) 12/28/21 04:48 Eos % (Auto) 5.2 % (0.9-2.9) H 12/28/21 04:48 Baso % (Auto) 1.5 % (0.2-1.0) H 12/28/21 04:48 Neut # (Auto) 5.7 x10^3/uL (2.2-4.8) H 12/28/21 04:48 Lymph # (Auto) 1.8 X10^3/uL (1.3-2.9) 12/28/21 04:48 [place] # (Auto) 0.8 x10^3/uL (0.3-0.8) 12/28/21 04:48 Eos # (Auto) 0.5 x10^3/uL (0.0-0.2) H 12/28/21 04:48 Baso # (Auto) 0.1 X10^3/uL (0.0-0.1) 12/28/21 04:48 Absolute Nucleated RBC 0.0 /100WBC 12/28/21 04:48 PT 26.6 SECONDS (11.8-14.3) 12/27/21 14:20 INR Target Range - 12/27/21 14:20 INR 2.58 (0.8-1.3) H 12/27/21 14:20 Sodium 133 mmol/L (136-145) L 12/28/21 04:48 Corrected Sodium 136 mmol/L (136-145) 12/28/21 04:48 Potassium 4.3 mmol/L (3.5-5.1) 12/28/21 04:48 Chloride 103 mmol/L (98-107) 12/28/21 04:48 Carbon Dioxide 21.9 mmol/L (21-32) 12/28/21 04:48 BUN 37 mg/dL (7-18) H 12/28/21 04:48 Creatinine 1.21 mg/dL (0.70-1.30) 12/28/21 04:48 Est GFR (MDRD) Af Amer > 60 (>60) 12/28/21 04:48 Est GFR (MDRD) Non-Af > 60 (>60) 12/28/21 04:48 Glucose 220 mg/dL (65-99) H 12/28/21 04:48 POC Glucose (mg/dL) 244 mg/dL (65-99) H 12/28/21 10:50 Calcium 7.5 mg/dL (8.5-10.1) L 12/28/21 04:48 Corrected Calcium 8.3 mg/dL (8.5-10.1) L 12/28/21 04:48 Total Bilirubin 0.40 mg/dL (0.2-1.0) 12/28/21 04:48 AST 31 Units/L (15-37) 12/28/21 04:48 ALT 30 Units/L (12-78) 12/28/21 04:48 Alkaline Phosphatase 76 Units/L (46-116) 12/28/21 04:48 Creatine Kinase 104 Units/L (39-308) 12/27/21 14:20 Troponin I High Sens 11.0 ng/L (4.0-60.0) 12/27/21 14:20 Total Protein 6.0 g/dL (6.4-8.2) L 12/28/21 04:48 Albumin 3.0 g/dL (3.4-5.0) L 12/28/21 04:48 Globulin 3.0 g/dL (2.5-4.5) 12/28/21 04:48 Albumin/Globulin Ratio 1.0 Ratio (1.1-2.1) L 12/28/21 04:48 Total PSA < 0.13 ng/mL (0.13-4.0) L 12/27/21 14:20 Specimen Type Clean catch urine 12/27/21 18:00 Urine Color Yellow (YELLOW) 12/27/21 18:00 Urine Appearance Hazy (CLEAR) 12/27/21 18:00 Urine pH 5.0 (5.0 - 8.0) 12/27/21 18:00 Ur Specific [place] 1.020 (1.000-1.030) 12/27/21 18:00 Urine Protein 1+ (NEGATIVE) 12/27/21 18:00 Urine Glucose (UA) Negative (NEGATIVE) 12/27/21 18:00 Urine Ketones Negative (NEGATIVE) 12/27/21 18:00 Urine Blood 1+ (NEGATIVE) 12/27/21 18:00 Urine Nitrite Negative (NEGATIVE) 12/27/21 18:00 Urine Bilirubin Negative (NEGATIVE) 12/27/21 18:00 Urine Urobilinogen Normal (NORMAL) 12/27/21 18:00 Ur Leukocyte Esterase 3+ (NEGATIVE) 12/27/21 18:00 Urine RBC 5-10 /HPF (0-3) A 12/27/21 18:00 Urine WBC 20-30 /HPF (0-5) A 12/27/21 18:00 Ur Squamous Epith Cells Rare /HPF (NEGATIVE) 12/27/21 18:00 Urine Bacteria Trace /HPF (NEGATIVE) 12/27/21 18:00 Ur Culture Indicated? Yes/culture set up 12/27/21 18:00 Acetone, Semi-Quant Negative (NEGATIVE) 12/27/21 14:20 SARS-CoV-2 (PCR) Negative (NEGATIVE) 12/27/21 14:40 Influenza Type A (PCR) Negative (NEGATIVE) 12/27/21 14:40 Influenza Type B (PCR) Negative (NEGATIVE) 12/27/21 14:40 RSV (PCR) Negative (NEGATIVE) 12/27/21 14:40 Plan (1) Acute hypotension: Status: Acute Plan: Hold blood pressure medications IVF NS@125ml/h (2) Dehydration: Status: Acute (3) Type 2 diabetes mellitus with hyperglycemia: Status: Acute Qualifiers: Diabetes mellitus rat exterminator insulin use: without mcc use Qualified Code(s): E11.65 - Type 2 diabetes mellitus with hyperglycemia Plan: Start glipizide, continue SSI Add metformin (4) Cystitis: Status: Acute Plan: IV Levaquin (5) Hyponatremia: Status: Acute Plan: IVF NS (6) Acute kidney injury: Status: Acute Plan: IVF, monitor renal function, hold nephrotoxic agents
[2021-12-28] MEDS ORDERED: GLUCOPHAGE ONE (16:25)
[2021-12-28] MEDS: GLUCOPHAGE PO SCH (16:36)
[2021-12-28] MEDS: SNACK - Diabetic Appropriate PO SCH (19:27)
[2021-12-28] MEDS ORDERED: NORCO 5/325 MG TAB PO PRN (19:37)
[2021-12-28] MEDS ORDERED: TOPROL XL PO ONE (20:45)
[2021-12-28] MEDS: TOPROL XL PO SCH (21:26)
[2021-12-29] MEDS: NS 1,000 ML IV 1,000 ML IV SCH ×3 (00:14→08:02)
[2021-12-29 05:24] LABS: BASOPHILS # (AUTO) 0.1 X10^3/uL (0.0-0.1); BASOPHILS % (AUTO) 0.8 % (0.2-1.0); EOSINOPHILS # (AUTO) 0.5 x10^3/uL (0.0-0.2); EOSINOPHILS % (AUTO) 5.6 % (0.9-2.9); HEMATOCRIT 38.3 % (42.0-54.0); HEMOGLOBIN 13.4 g/dL (13.5-18.0); LYMPHOCYTES # (AUTO) 1.9 X10^3/uL (1.3-2.9); LYMPHOCYTES % (AUTO) 20.4 % (21.0-51.0); MEAN CORPUSCULAR HEMOGLOBIN 31.2 pg (27.0-34.0); MEAN CORPUSCULAR HGB CONC 35.1 g/dL (33.0-35.0); MEAN PLATELET VOLUME 8.1 fL (7.4-11.0); MONOCYTES # (AUTO) 0.8 x10^3/uL (0.3-0.8); MONOCYTES % (AUTO) 9.1 % (0.0-13.0); NEUTROPHILS % (AUTO) 64.1 % (42.0-75.0); RED CELL DISTRIBUTION WIDTH 12.4 % (11.6-16.5); WHITE BLOOD COUNT 9.3 X10^3/uL (3.6-10.0)
[2021-12-29 05:37] LABS: ALANINE AMINOTRANSFERASE 35 Units/L (12-78); ALBUMIN 3.1 g/dL (3.4-5.0); ALKALINE PHOSPHATASE 76 Units/L (46-116); ASPARTATE AMINO TRANSFERASE 39 Units/L (15-37); BLOOD UREA NITROGEN 19 mg/dL (7-18); CALCIUM 8.3 mg/dL (8.5-10.1); CHLORIDE 103 mmol/L (98-107); COR NA(FOR HYPERGLY) 137 mmol/L (136-145); CREATININE 0.92 mg/dL (0.70-1.30); SODIUM 135 mmol/L (136-145); TOTAL PROTEIN 6.5 g/dL (6.4-8.2); eGFR NON BLACK RACES > 60 (>60)
[2021-12-29] MEDS ORDERED: GLUCOPHAGE ONE (05:58)
[2021-12-29] MEDS: GLUCOPHAGE PO SCH (06:14)
[2021-12-29 08:02] VITALS: BP 118/59
[2021-12-29] MEDS: COUMADIN TAB 5 MG (JANTOVEN) PO SCH (08:09)
[2021-12-29] MEDS: NORVASC TAB 5 MG PO SCH (08:09)
[2021-12-29] MEDS: LEVAQUIN TAB 750 MG PO SCH (08:09)
[2021-12-29] MEDS: PROTONIX TAB 40 MG PO SCH (08:10)
[2021-12-29] MEDS: CRESTOR TAB 10 MG PO SCH (08:10)
[2021-12-29] MEDS: SYNTHROID 50 mcg TAB PO SCH (08:10)
--- NOTE | 2021-12-29 08:54 | W.DIS.FURT ---
Summary of Discharge Discharge Summary of Date Date of Exam: 12/29/21 Admission Date Date of Admission: 12/27/21 Admission Diagnosis Patient Problems (Updated 12/31/21 @ 19:43 by QUIN HESS) Type 2 diabetes mellitus with hyperglycemia (Acute) E11.65 Benign prostatic hyperplasia (Acute) N40.0 CAD (coronary artery disease) (Acute) I25.10 Azotemia (Acute) R79.89 Hypotension (Acute) I95.9 Neutrophilic leukocytosis (Acute) D72.9 Hospital Course: Pt is a 71 year old male past medical history Hypertension, Valvular heart disease, DMT2, admitted for acute hypotension, dehydration, acute kidney injury, hyponatremia, hyperglycemia, and cystitis. His hospital/treatment course included: IVF NS, antibiotics: IV Levaquin, bronchodilators, SSI. He was started on glipizide for newly discovered uncontrolled diabetes mellitus. Once renal function improved back to normal, he was also started on metformin. Electrolytes corrected to normal limits. Pt responded well to treatments. Urine culture no g rowth to date except for yeast which is likely contaminate. Pt was instructed to continue metoprolol succinate and norvasc but discontinue taking all other home blood pressure medications. Rx metformin, glipizide, and Januvia. Pt discharged in stable condition, instructed to follow up with pcp in 1 week. Vital Signs: Vital Signs (72 hours) 12/26/21 14:37 12/27/21 13:57 12/27/21 14:10 Temperature 99.0 F Pulse Rate 87 86 Respiratory Rate 18 18 Blood Pressure 76/50 78/48 Blood Pressure [Left Arm] 169/96 O2 Sat by Pulse Oximetry 96 92 L Oxygen Delivery Method Room Air Room Air Oxygen Flow Rate FIO2% 12/27/21 14:40 12/27/21 15:10 12/27/21 15:40 Temperature Pulse Rate 83 77 75 Respiratory Rate 18 18 18 Blood Pressure 72/45 86/50 84/52 Blood Pressure [Left Arm] O2 Sat by Pulse Oximetry 91 L 91 L 93 L Oxygen Delivery Method Room Air Room Air Room Air Oxygen Flow Rate FIO2% 12/27/21 16:46 12/27/21 14:20 12/27/21 14:29 Temperature Pulse Rate 85 83 Respiratory Rate Blood Pressure Blood Pressure [Left Arm] O2 Sat by Pulse Oximetry 92 L 92 L Oxygen Delivery Method Room Air Oxygen Flow Rate FIO2% 12/27/21 14:30 12/27/21 14:33 12/27/21 14:45 Temperature Pulse Rate 81 79 Respiratory Rate Blood Pressure 72/45 Blood Pressure [Left Arm] O2 Sat by Pulse Oximetry 91 L 93 L Oxygen Delivery Method Oxygen Flow Rate FIO2% 12/27/21 15:00 12/27/21 15:00 12/27/21 15:15 Temperature Pulse Rate 77 75 Respiratory Rate Blood Pressure 86/50 Blood Pressure [Left Arm] O2 Sat by Pulse Oximetry 91 L 96 Oxygen Delivery Method Oxygen Flow Rate FIO2% 12/27/21 15:30 12/27/21 15:30 12/27/21 15:45 Temperature Pulse Rate 75 72 Respiratory Rate Blood Pressure 84/52 Blood Pressure [Left Arm] O2 Sat by Pulse Oximetry 93 L 96 Oxygen Delivery Method Oxygen Flow Rate FIO2% 12/27/21 16:00 12/27/21 16:00 12/27/21 16:15 Temperature Pulse Rate 74 73 Respiratory Rate Blood Pressure 92/50 Blood Pressure [Left Arm] O2 Sat by Pulse Oximetry 95 95 Oxygen Delivery Method Oxygen Flow Rate FIO2% 12/27/21 16:30 12/27/21 16:30 12/27/21 16:45 Temperature Pulse Rate 73 74 Respiratory Rate Blood Pressure 85/52 Blood Pressure [Left Arm] O2 Sat by Pulse Oximetry 95 94 L Oxygen Delivery Method Oxygen Flow Rate FIO2% 12/27/21 17:49 12/27/21 18:00 12/27/21 19:00 Temperature 98.4 F Pulse Rate 78 69 Respiratory Rate 20 21 Blood Pressure 99/57 94/51 Blood Pressure [Left Arm] O2 Sat by Pulse Oximetry 93 L 95 Oxygen Delivery Method Room Air Room Air Room Air Oxygen Flow Rate FIO2% 12/27/21 19:00 12/27/21 20:00 12/27/21 21:00 Temperature 98.8 F Pulse Rate 80 76 74 Respiratory Rate 21 30 H 25 H Blood Pressure 97/56 99/52 93/50 Blood Pressure [Left Arm] O2 Sat by Pulse Oximetry 91 L 94 L 92 L Oxygen Delivery Method Room Air Room Air Room Air Oxygen Flow Rate FIO2% 12/27/21 22:00 12/27/21 23:44 12/27/21 23:00 Temperature 99.7 F H Pulse Rate 74 73 Respiratory Rate 29 H 20 Blood Pressure 89/53 97/53 Blood Pressure [Left Arm] O2 Sat by Pulse Oximetry 90 L 92 L Oxygen Delivery Method Room Air Nasal Cannula Nasal Cannula Oxygen Flow Rate 2 2 FIO2% 28 12/28/21 00:00 12/28/21 01:00 12/28/21 02:00 Temperature Pulse Rate 80 71 70 Respiratory Rate 27 H 10 L 24 Blood Pressure 100/56 103/58 109/62 Blood Pressure [Left Arm] O2 Sat by Pulse Oximetry 94 L 93 L 92 L Oxygen Delivery Method Nasal Cannula Nasal Cannula Nasal Cannula Oxygen Flow Rate 2 2 2 FIO2% 12/28/21 03:00 12/28/21 04:00 12/28/21 05:00 Temperature 97.8 F Pulse Rate 72 74 72 Respiratory Rate 25 H 9 L 17 Blood Pressure 108/66 125/71 126/70 Blood Pressure [Left Arm] O2 Sat by Pulse Oximetry 92 L 95 96 Oxygen Delivery Method Nasal Cannula Nasal Cannula Nasal Cannula Oxygen Flow Rate 2 2 2 FIO2% 12/28/21 06:00 12/28/21 07:00 12/28/21 06:45 Temperature Pulse Rate 69 73 Respiratory Rate 19 21 Blood Pressure 106/55 Blood Pressure [Left Arm] O2 Sat by Pulse Oximetry 92 L 95 Oxygen Delivery Method Nasal Cannula Room Air Oxygen Flow Rate 2 2 FIO2% 12/28/21 07:00 12/28/21 07:00 12/28/21 07:19 Temperature 98.3 F Pulse Rate 70 Respiratory Rate 10 L Blood Pressure 112/60 Blood Pressure [Left Arm] O2 Sat by Pulse Oximetry 92 L Oxygen Delivery Method Nasal Cannula Oxygen Flow Rate 2 FIO2% 12/28/21 07:15 12/28/21 07:30 12/28/21 07:45 Temperature Pulse Rate 69 69 68 Respiratory Rate 21 17 12 Blood Pressure Blood Pressure [Left Arm] O2 Sat by Pulse Oximetry 95 95 93 L Oxygen Delivery Method Oxygen Flow Rate FIO2% 12/28/21 08:00 12/28/21 08:01 12/28/21 08:01 Temperature Pulse Rate 93 H 89 Respiratory Rate 30 H 26 H Blood Pressure 146/83 Blood Pressure [Left Arm] O2 Sat by Pulse Oximetry 94 L 94 L Oxygen Delivery Method Oxygen Flow Rate FIO2% 12/28/21 08:15 12/28/21 08:30 12/28/21 08:45 Temperature Pulse Rate 102 H 90 89 Respiratory Rate 25 H 27 H 21 Blood Pressure Blood Pressure [Left Arm] O2 Sat by Pulse Oximetry 94 L 94 L 97 Oxygen Delivery Method Oxygen Flow Rate FIO2% 12/28/21 08:49 12/28/21 08:49 12/28/21 09:00 Temperature Pulse Rate 85 Respiratory Rate 28 H Blood Pressure 100/59 104/54 Blood Pressure [Left Arm] O2 Sat by Pulse Oximetry 95 Oxygen Delivery Method Oxygen Flow Rate FIO2% 12/28/21 09:00 12/28/21 08:40 12/28/21 08:40 Temperature Pulse Rate 83 Respiratory Rate 28 H Blood Pressure Blood Pressure [Left Arm] O2 Sat by Pulse Oximetry 94 L 97 Oxygen Delivery Method Nasal Cannula Oxygen Flow Rate 2 FIO2% 28 12/28/21 09:00 12/28/21 09:18 12/28/21 09:30 Temperature Pulse Rate 110 H 92 H Respiratory Rate 32 H Blood Pressure 104/54 Blood Pressure [Left Arm] O2 Sat by Pulse Oximetry 93 L 93 L Oxygen Delivery Method Oxygen Flow Rate FIO2% 12/28/21 09:45 12/28/21 10:00 12/28/21 10:05 Temperature Pulse Rate 88 87 Respiratory Rate 24 25 H Blood Pressure 133/81 133/81 Blood Pressure [Left Arm] O2 Sat by Pulse Oximetry 95 94 L Oxygen Delivery Method Oxygen Flow Rate FIO2% 12/28/21 10:05 12/28/21 10:15 12/28/21 10:31 Temperature Pulse Rate 86 84 87 Respiratory Rate 26 H 24 26 H Blood Pressure Blood Pressure [Left Arm] O2 Sat by Pulse Oximetry 93 L 97 96 Oxygen Delivery Method Oxygen Flow Rate FIO2% 12/28/21 10:45 12/28/21 11:00 12/28/21 11:00 Temperature Pulse Rate 74 72 Respiratory Rate 23 21 Blood Pressure 106/55 Blood Pressure [Left Arm] O2 Sat by Pulse Oximetry 95 96 Oxygen Delivery Method Oxygen Flow Rate FIO2% 12/28/21 11:15 12/28/21 11:30 12/28/21 11:45 Temperature Pulse Rate 76 74 72 Respiratory Rate 25 H 17 19 Blood Pressure Blood Pressure [Left Arm] O2 Sat by Pulse Oximetry 97 94 L 93 L Oxygen Delivery Method Oxygen Flow Rate FIO2% 12/28/21 12:00 12/28/21 12:00 12/28/21 12:15 Temperature 98.5 F Pulse Rate 68 90 Respiratory Rate 22 36 H Blood Pressure 108/65 Blood Pressure [Left Arm] O2 Sat by Pulse Oximetry 94 L 97 Oxygen Delivery Method Oxygen Flow Rate FIO2% 12/28/21 12:30 12/28/21 12:45 12/28/21 13:00 Temperature Pulse Rate 86 86 Respiratory Rate 32 H 27 H Blood Pressure 160/80 Blood Pressure [Left Arm] O2 Sat by Pulse Oximetry 95 96 Oxygen Delivery Method Oxygen Flow Rate FIO2% 12/28/21 13:00 12/28/21 13:15 12/28/21 13:30 Temperature Pulse Rate 87 80 75 Respiratory Rate 23 8 L 18 Blood Pressure Blood Pressure [Left Arm] O2 Sat by Pulse Oximetry 88 L 95 96 Oxygen Delivery Method Oxygen Flow Rate FIO2% 12/28/21 13:45 12/28/21 14:00 12/28/21 14:00 Temperature Pulse Rate 70 74 Respiratory Rate 20 8 L Blood Pressure 135/60 Blood Pressure [Left Arm] O2 Sat by Pulse Oximetry 94 L 92 L Oxygen Delivery Method Oxygen Flow Rate FIO2% 12/28/21 14:15 12/28/21 14:30 12/28/21 14:45 Temperature Pulse Rate 74 80 75 Respiratory Rate 14 23 26 H Blood Pressure Blood Pressure [Left Arm] O2 Sat by Pulse Oximetry 97 98 95 Oxygen Delivery Method Oxygen Flow Rate FIO2% 12/28/21 15:00 12/28/21 15:00 12/28/21 15:44 Temperature 98.7 F Pulse Rate 73 Respiratory Rate 22 Blood Pressure 117/64 Blood Pressure [Left Arm] O2 Sat by Pulse Oximetry 94 L Oxygen Delivery Method Oxygen Flow Rate FIO2% 12/28/21 15:15 12/28/21 15:30 12/28/21 15:45 Temperature Pulse Rate 67 76 73 Respiratory Rate 21 24 24 Blood Pressure Blood Pressure [Left Arm] O2 Sat by Pulse Oximetry 95 97 96 Oxygen Delivery Method Oxygen Flow Rate FIO2% 12/28/21 16:00 12/28/21 16:00 12/28/21 16:15 Temperature Pulse Rate 76 78 Respiratory Rate 25 H 22 Blood Pressure 136/67 Blood Pressure [Left Arm] O2 Sat by Pulse Oximetry 96 98 Oxygen Delivery Method Oxygen Flow Rate FIO2% 12/28/21 16:30 12/28/21 16:45 12/28/21 17:00 Temperature Pulse Rate 75 73 Respiratory Rate 28 H 30 H Blood Pressure 128/63 Blood Pressure [Left Arm] O2 Sat by Pulse Oximetry 95 96 Oxygen Delivery Method Oxygen Flow Rate FIO2% 12/28/21 17:00 12/28/21 17:15 12/28/21 17:30 Temperature Pulse Rate 72 81 86 Respiratory Rate 25 H 25 H 31 H Blood Pressure Blood Pressure [Left Arm] O2 Sat by Pulse Oximetry 95 97 97 Oxygen Delivery Method Oxygen Flow Rate FIO2% 12/28/21 17:45 12/28/21 17:59 12/28/21 18:00 Temperature Pulse Rate 79 77 Respiratory Rate 26 H 21 Blood Pressure 137/69 Blood Pressure [Left Arm] O2 Sat by Pulse Oximetry 97 98 Oxygen Delivery Method Oxygen Flow Rate FIO2% 12/28/21 18:02 12/28/21 19:00 12/28/21 19:00 Temperature Pulse Rate 75 78 Respiratory Rate 28 H 28 H Blood Pressure 144/63 Blood Pressure [Left Arm] O2 Sat by Pulse Oximetry 98 96 Oxygen Delivery Method Room Air Nasal Cannula Oxygen Flow Rate 2 2 FIO2% 12/28/21 20:42 12/28/21 20:00 12/28/21 21:00 Temperature 98.4 F Pulse Rate 75 75 Respiratory Rate 13 24 Blood Pressure 128/71 120/58 Blood Pressure [Left Arm] O2 Sat by Pulse Oximetry 95 96 Oxygen Delivery Method Nasal Cannula Nasal Cannula Nasal Cannula Oxygen Flow Rate 2 2 2 FIO2% 28 12/28/21 21:26 12/28/21 22:00 12/28/21 23:00 Temperature 98.5 F Pulse Rate 72 64 Respiratory Rate 24 24 19 Blood Pressure 118/66 119/59 Blood Pressure [Left Arm] O2 Sat by Pulse Oximetry 94 L 96 Oxygen Delivery Method Nasal Cannula Nasal Cannula Oxygen Flow Rate 2 2 FIO2% 12/29/21 00:00 12/28/21 22:26 12/29/21 01:00 Temperature Pulse Rate 61 60 Respiratory Rate 20 24 16 Blood Pressure 105/61 112/56 Blood Pressure [Left Arm] O2 Sat by Pulse Oximetry 96 89 L Oxygen Delivery Method Nasal Cannula Nasal Cannula Oxygen Flow Rate 2 2 FIO2% 12/29/21 02:00 12/29/21 03:00 12/29/21 04:00 Temperature 98.2 F Pulse Rate 63 58 L 61 Respiratory Rate 23 20 16 Blood Pressure 125/74 113/61 148/76 Blood Pressure [Left Arm] O2 Sat by Pulse Oximetry 95 97 97 Oxygen Delivery Method Nasal Cannula Nasal Cannula Nasal Cannula Oxygen Flow Rate 2 2 2 FIO2% 12/29/21 05:00 12/29/21 06:00 12/28/21 22:00 Temperature Pulse Rate 61 58 L 72 Respiratory Rate 24 19 23 Blood Pressure 115/65 125/67 Blood Pressure [Left Arm] O2 Sat by Pulse Oximetry 97 96 95 Oxygen Delivery Method Nasal Cannula Nasal Cannula Oxygen Flow Rate 2 2 FIO2% 12/28/21 22:01 12/28/21 22:01 12/28/21 22:01 Temperature Pulse Rate 72 Respiratory Rate 24 Blood Pressure 118/66 118/66 Blood Pressure [Left Arm] O2 Sat by Pulse Oximetry 94 L Oxygen Delivery Method Oxygen Flow Rate FIO2% 12/28/21 22:15 12/28/21 22:30 12/28/21 22:47 Temperature Pulse Rate 68 66 65 Respiratory Rate 22 22 18 Blood Pressure Blood Pressure [Left Arm] O2 Sat by Pulse Oximetry 94 L 92 L 94 L Oxygen Delivery Method Oxygen Flow Rate FIO2% 12/28/21 23:00 12/28/21 23:00 12/28/21 23:15 Temperature Pulse Rate 64 69 Respiratory Rate 19 20 Blood Pressure 119/59 Blood Pressure [Left Arm] O2 Sat by Pulse Oximetry 96 97 Oxygen Delivery Method Oxygen Flow Rate FIO2% 12/28/21 23:30 12/28/21 23:45 12/29/21 00:00 Temperature Pulse Rate 66 63 Respiratory Rate 18 17 Blood Pressure 105/61 Blood Pressure [Left Arm] O2 Sat by Pulse Oximetry 97 97 Oxygen Delivery Method Oxygen Flow Rate FIO2% 12/29/21 00:00 12/29/21 00:15 12/29/21 00:30 Temperature Pulse Rate 61 61 60 Respiratory Rate 20 17 16 Blood Pressure Blood Pressure [Left Arm] O2 Sat by Pulse Oximetry 96 96 94 L Oxygen Delivery Method Oxygen Flow Rate FIO2% 12/29/21 00:45 12/29/21 01:00 12/29/21 01:00 Temperature Pulse Rate 59 L 60 Respiratory Rate 15 16 Blood Pressure 112/56 Blood Pressure [Left Arm] O2 Sat by Pulse Oximetry 95 82 L Oxygen Delivery Method Oxygen Flow Rate FIO2% 12/29/21 01:15 12/29/21 01:30 12/29/21 01:45 Temperature Pulse Rate 60 59 L 66 Respiratory Rate 16 17 20 Blood Pressure Blood Pressure [Left Arm] O2 Sat by Pulse Oximetry 92 L 91 L 96 Oxygen Delivery Method Oxygen Flow Rate FIO2% 12/29/21 02:00 12/29/21 02:00 12/29/21 02:15 Temperature Pulse Rate 63 61 Respiratory Rate 23 24 Blood Pressure 125/74 Blood Pressure [Left Arm] O2 Sat by Pulse Oximetry 95 98 Oxygen Delivery Method Oxygen Flow Rate FIO2% 12/29/21 02:30 12/29/21 02:45 12/29/21 03:00 Temperature Pulse Rate 59 L 58 L Respiratory Rate 18 15 Blood Pressure 113/61 Blood Pressure [Left Arm] O2 Sat by Pulse Oximetry 96 96 Oxygen Delivery Method Oxygen Flow Rate FIO2% 12/29/21 03:00 12/29/21 03:15 12/29/21 03:30 Temperature Pulse Rate 58 L 56 L 57 L Respiratory Rate 20 28 H 17 Blood Pressure Blood Pressure [Left Arm] O2 Sat by Pulse Oximetry 97 95 95 Oxygen Delivery Method Oxygen Flow Rate FIO2% 12/29/21 03:45 12/29/21 04:01 12/29/21 04:03 Temperature Pulse Rate 58 L 63 Respiratory Rate 17 21 Blood Pressure 148/76 Blood Pressure [Left Arm] O2 Sat by Pulse Oximetry 97 92 L Oxygen Delivery Method Oxygen Flow Rate FIO2% 12/29/21 04:03 12/29/21 04:15 12/29/21 04:30 Temperature Pulse Rate 61 62 63 Respiratory Rate 16 20 24 Blood Pressure Blood Pressure [Left Arm] O2 Sat by Pulse Oximetry 97 98 93 L Oxygen Delivery Method Oxygen Flow Rate FIO2% 12/29/21 04:45 12/29/21 05:00 12/29/21 05:00 Temperature Pulse Rate 58 L 61 Respiratory Rate 23 24 Blood Pressure 115/65 Blood Pressure [Left Arm] O2 Sat by Pulse Oximetry 95 97 Oxygen Delivery Method Oxygen Flow Rate FIO2% 12/29/21 05:15 12/29/21 05:30 12/29/21 05:45 Temperature Pulse Rate 59 L 60 57 L Respiratory Rate 17 13 17 Blood Pressure Blood Pressure [Left Arm] O2 Sat by Pulse Oximetry 95 95 94 L Oxygen Delivery Method Oxygen Flow Rate FIO2% 12/29/21 06:00 12/29/21 06:00 12/29/21 06:15 Temperature Pulse Rate 58 L 60 Respiratory Rate 19 20 Blood Pressure 125/67 Blood Pressure [Left Arm] O2 Sat by Pulse Oximetry 96 98 Oxygen Delivery Method Oxygen Flow Rate FIO2% 12/29/21 06:30 12/29/21 06:45 12/29/21 07:00 Temperature Pulse Rate 60 61 Respiratory Rate 23 12 Blood Pressure 117/67 Blood Pressure [Left Arm] O2 Sat by Pulse Oximetry 97 96 Oxygen Delivery Method Oxygen Flow Rate FIO2% 12/29/21 07:00 12/29/21 07:16 12/29/21 07:00 Temperature 98.4 F Pulse Rate 60 Respiratory Rate 15 Blood Pressure Blood Pressure [Left Arm] O2 Sat by Pulse Oximetry 97 Oxygen Delivery Method Room Air Oxygen Flow Rate 2 FIO2% 12/29/21 07:15 12/29/21 07:30 12/29/21 07:45 Temperature Pulse Rate 61 66 67 Respiratory Rate 24 12 29 H Blood Pressure Blood Pressure [Left Arm] O2 Sat by Pulse Oximetry 96 99 97 Oxygen Delivery Method Oxygen Flow Rate FIO2% 12/29/21 07:59 12/29/21 08:00 12/29/21 08:48 Temperature Pulse Rate 71 72 Respiratory Rate 26 H Blood Pressure 118/59 Blood Pressure [Left Arm] O2 Sat by Pulse Oximetry 96 96 Oxygen Delivery Method Oxygen Flow Rate FIO2% Labs: Laboratory Last Values WBC 9.3 X10^3/uL (3.6-10.0) 12/29/21 04:47 RBC 4.30 X10^6/uL (4.7-6.0) L 12/29/21 04:47 Hgb 13.4 g/dL (13.5-18.0) L 12/29/21 04:47 Hct 38.3 % (42.0-54.0) L 12/29/21 04:47 MCV 89.0 fL (80.0-100.0) 12/29/21 04:47 MCH 31.2 pg (27.0-34.0) 12/29/21 04:47 MCHC 35.1 g/dL (33.0-35.0) H 12/29/21 04:47 RDW 12.4 % (11.6-16.5) 12/29/21 04:47 Plt Count 200 X10^3/uL (150.0-450.0) 12/29/21 04:47 MPV 8.1 fL (7.4-11.0) 12/29/21 04:47 Neut % (Auto) 64.1 % (42.0-75.0) 12/29/21 04:47 Lymph % (Auto) 20.4 % (21.0-51.0) L 12/29/21 04:47 [place] % (Auto) 9.1 % (0.0-13.0) 12/29/21 04:47 Eos % (Auto) 5.6 % (0.9-2.9) H 12/29/21 04:47 Baso % (Auto) 0.8 % (0.2-1.0) 12/29/21 04:47 Neut # (Auto) 6.0 x10^3/uL (2.2-4.8) H 12/29/21 04:47 Lymph # (Auto) 1.9 X10^3/uL (1.3-2.9) 12/29/21 04:47 [place] # (Auto) 0.8 x10^3/uL (0.3-0.8) 12/29/21 04:47 Eos # (Auto) 0.5 x10^3/uL (0.0-0.2) H 12/29/21 04:47 Baso # (Auto) 0.1 X10^3/uL (0.0-0.1) 12/29/21 04:47 Absolute Nucleated RBC 0.1 /100WBC 12/29/21 04:47 PT 26.6 SECONDS (11.8-14.3) 12/27/21 14:20 INR Target Range - 12/27/21 14:20 INR 2.58 (0.8-1.3) H 12/27/21 14:20 Sodium 135 mmol/L (136-145) L 12/29/21 04:47 Corrected Sodium 137 mmol/L (136-145) 12/29/21 04:47 Potassium 4.5 mmol/L (3.5-5.1) 12/29/21 04:47 Chloride 103 mmol/L (98-107) 12/29/21 04:47 Carbon Dioxide 25.0 mmol/L (21-32) 12/29/21 04:47 BUN 19 mg/dL (7-18) H 12/29/21 04:47 Creatinine 0.92 mg/dL (0.70-1.30) 12/29/21 04:47 Est GFR (MDRD) Af Amer > 60 (>60) 12/29/21 04:47 Est GFR (MDRD) Non-Af > 60 (>60) 12/29/21 04:47 Glucose 200 mg/dL (65-99) H 12/29/21 04:47 POC Glucose (mg/dL) 192 mg/dL (65-99) H 12/29/21 06:08 Calcium 8.3 mg/dL (8.5-10.1) L 12/29/21 04:47 Corrected Calcium 9.0 mg/dL (8.5-10.1) 12/29/21 04:47 Total Bilirubin 0.50 mg/dL (0.2-1.0) 12/29/21 04:47 AST 39 Units/L (15-37) H 12/29/21 04:47 ALT 35 Units/L (12-78) 12/29/21 04:47 Alkaline Phosphatase 76 Units/L (46-116) 12/29/21 04:47 Creatine Kinase 104 Units/L (39-308) 12/27/21 14:20 Troponin I High Sens 11.0 ng/L (4.0-60.0) 12/27/21 14:20 Total Protein 6.5 g/dL (6.4-8.2) 12/29/21 04:47 Albumin 3.1 g/dL (3.4-5.0) L 12/29/21 04:47 Globulin 3.4 g/dL (2.5-4.5) 12/29/21 04:47 Albumin/Globulin Ratio 0.9 Ratio (1.1-2.1) L 12/29/21 04:47 Total PSA < 0.13 ng/mL (0.13-4.0) L 12/27/21 14:20 Specimen Type Clean catch urine 12/27/21 18:00 Urine Color Yellow (YELLOW) 12/27/21 18:00 Urine Appearance Hazy (CLEAR) 12/27/21 18:00 Urine pH 5.0 (5.0 - 8.0) 12/27/21 18:00 Ur Specific [place] 1.020 (1.000-1.030) 12/27/21 18:00 Urine Protein 1+ (NEGATIVE) 12/27/21 18:00 Urine Glucose (UA) Negative (NEGATIVE) 12/27/21 18:00 Urine Ketones Negative (NEGATIVE) 12/27/21 18:00 Urine Blood 1+ (NEGATIVE) 12/27/21 18:00 Urine Nitrite Negative (NEGATIVE) 12/27/21 18:00 Urine Bilirubin Negative (NEGATIVE) 12/27/21 18:00 Urine Urobilinogen Normal (NORMAL) 12/27/21 18:00 Ur Leukocyte Esterase 3+ (NEGATIVE) 12/27/21 18:00 Urine RBC 5-10 /HPF (0-3) A 12/27/21 18:00 Urine WBC 20-30 /HPF (0-5) A 12/27/21 18:00 Ur Squamous Epith Cells Rare /HPF (NEGATIVE) 12/27/21 18:00 Urine Bacteria Trace /HPF (NEGATIVE) 12/27/21 18:00 Ur Culture Indicated? Yes/culture set up 12/27/21 18:00 Acetone, Semi-Quant Negative (NEGATIVE) 12/27/21 14:20 SARS-CoV-2 (PCR) Negative (NEGATIVE) 12/27/21 14:40 Influenza Type A (PCR) Negative (NEGATIVE) 12/27/21 14:40 Influenza Type B (PCR) Negative (NEGATIVE) 12/27/21 14:40 RSV (PCR) Negative (NEGATIVE) 12/27/21 14:40 Reason For Visit: UNCONTROLLED TYPE 2 DM,AZOTEMIA,HYPOTENSION, Discharge Date Discharge Date: 12/29/21 Discharge Diagnosis All Active Problems (Updated 12/31/21 @ 19:43 by QUIN HESS) Hypomagnesemia (Acute) Acute kidney injury (Acute) Hyponatremia (Acute) Cystitis (Acute) Acute hypotension (Acute) Fever, postprocedural (Chronic) Bronchopneumonia (Acute) Mechanical heart valve present (Chronic) Hypertension (Chronic) BPH (benign prostatic hyperplasia) (Chronic) Hyperlipidemia (Chronic) CAD (coronary artery disease) (Chronic) Thoracic aortic aneurysm without rupture (Chronic) Elevated PSA (Chronic) History of prostate biopsy (Acute) Dehydration (Acute) Chest pain (Acute) Hypertension (Acute) Ingestion of nontoxic substance (Acute) Type 2 diabetes mellitus with hyperglycemia (Acute) Benign prostatic hyperplasia (Acute) CAD (coronary artery disease) (Acute) Azotemia (Acute) Hypotension (Acute) Neutrophilic leukocytosis (Acute) Plan of Treatment: Continue with present treatment and follow up plan. Pt is to keep follow up appointment as instructed and take medications as ordered. Discharge Medications Discharge Medications: No Known Drug Allergies Allergy (Verified 07/26/21 10:25) CONTINUE taking the following medications amlodipine 5 mg tablet 5 mg PO QDAY 12/27/21 [History] levothyroxine 50 mcg tablet 50 mcg PO QDAY 12/27/21 [History] oxybutynin chloride 5 mg tablet,extended release 24 hr 5 mg PO QDAY 12/27/21 [History] pantoprazole 40 mg tablet,delayed release 40 mg PO QDAY 12/27/21 [History] rosuvastatin 20 mg tablet 20 mg PO QPM 12/27/21 [History] warfarin 5 mg tablet 5 mg PO QDAY 12/27/21 [History] New Prescriptions glipizide 10 mg tablet, extended release 24 hr 10 mg PO DAILY 30 days #30 tabs 12/29/21 [Rx] levofloxacin 750 mg tablet 750 mg PO DAILY 3 days #3 tabs 12/29/21 [Rx] metformin 1,000 mg tablet 1,000 mg PO BIDWM 30 days #60 tabs 12/29/21 [Rx] sitagliptin 100 mg tablet (Januvia) 100 mg PO QDAY 30 days #30 tabs 12/29/21 [Rx] Discharge Disposition Assessment: No distress noted at time of discharge. Discharge Plan Discharge Plan Hospital Course: Pt is a 71 year old male past medical history Hypertension, Valvular heart disease, DMT2, admitted for acute hypotension, dehydration, acute kidney injury, hyponatremia, hyperglycemia, and cystitis. His hospital/treatment course included: IVF NS, antibiotics: IV Levaquin, bronchodilators, SSI. He was started on glipizide for newly discovered uncontrolled diabetes mellitus. Once renal function improved back to normal, he was also started on metformin. Electrolytes corrected to normal limits. Pt responded well to treatments. Urine culture no growth to date except for yeast which is likely contaminate. Pt was instructed to continue metoprolol succinate and norvasc but discontinue taking all other home blood pressure medications. Rx metformin, glipizide, and Januvia. Pt discharged in stable condition, instructed to follow up with pcp in 1 week. Patient Disposition: 01 HOME, SELF-CARE Condition: Stable Health Concerns: Post Hospitalization: new medications and changes needed to prevent readmission or further decline. Pt educated and given instructions on all concerns. Care Plan Goals: Problem: Fluid Volume Deficit Goal: Maintain/Improved Adequate hydration. Instructions: Follow provided instructions. Follow up with primary physician as directed. Contact primary care physician or report to the closest Emergency Room if condition worsens. Plan of Treatment: Continue with present treatment and follow up plan. Pt is to keep follow up appointment as instructed and take medications as ordered. Assessment: No distress noted at time of discharge. Prescriptions: New metformin 1,000 mg tablet 1,000 mg PO BIDWM 30 Days Qty: 60 0RF glipizide 10 mg tablet extended release 24hr 10 mg PO DAILY 30 Days Qty: 30 0RF Januvia 100 mg tablet 100 mg PO QDAY 30 Days Qty: 30 0RF Continued meloxicam 15 MG tablet 15 mg PO HS clonazepam 0.5 MG tablet 0.5 mg PO HS levothyroxine 50 mcg tablet 50 mcg PO QDAY pantoprazole 40 mg tablet,delayed release (DR/EC) 40 mg PO QDAY warfarin 5 mg tablet 5 mg PO QDAY oxybutynin chloride 5 mg tablet extended release 24hr 5 mg PO QDAY rosuvastatin 20 mg tablet 20 mg PO QPM Discontinued metformin 500 mg tablet 500 mg PO BID clonidine HCl 0.1 mg tablet 0.1 mg PO BID chlorthalidone 25 mg tablet 25 mg PO QDAY glipizide 2.5 mg tablet extended release 24hr 2.5 mg PO QDAY levofloxacin 750 mg tablet 750 mg PO QDAY Rx Instructions: STARTED ON 12/26/21 Orders to Discharge Patient Discharge Orders: Discharge (Routine); Ordered 12/29/21 Ordered By: Andrea Tavera Follow ups/Referrals Follow ups/Referrals: Andrea Tavera [Primary Care Provider] - 01/03/22 3:00 pm Instructions Instructions: Bleeding Precautions When on Anticoagulant Therapy, Adult, Type 2 Diabetes Mellitus, Diagnosis, Adult, Antibiotic Medicine, Adult, [id number], Form - Daily Diabetes Record, Hypotension, [id number], What You Need to Know About Warfarin, Weakness, [id number], Understanding Your Risk for Falls, Hemoglobin A1c Test, Dehydration, Adult, [id number], Hyperglycemia, [id number], Managing Your Hypertension, Diabetes Mellitus and Nutrition Stand Alone Forms: Excuse From Work or School, Precautions for [facility], Patient Portal, Social Distancing
[2021-12-29] MEDS ORDERED: GLUCOTROL XL 24-HR PO SCH (09:00)
== END 2021-12-29 11:30 | disposition home or self-care (01) ==
LOC: ER 13:54 → ICU 13:54
PROVIDERS: ADMIT Family Medicine; ATTEND Family Medicine
DX: E87.1 Hypo-osmolality and hyponatremia; N40.0 Benign prostatic hyperplasia without lower urinary tract symptoms; I10 Essential (primary) hypertension; N30.00 Acute cystitis without hematuria; R79.1 Abnormal coagulation profile; B37.41 Candidal cystitis and urethritis; N17.8 Other acute kidney failure; E86.0 Dehydration; R79.89 Other specified abnormal findings of blood chemistry; Z20.822 Contact with and (suspected) exposure to COVID-19; E11.65 Type 2 diabetes mellitus with hyperglycemia; R51.9 Headache, unspecified; I95.89 Other hypotension

== ENCOUNTER 2024-11-04 14:54 | Observation (INO) ==
[2024-11-04] MEDS ORDERED: PHARMACY CONSULT XX SCH (17:00)
[2024-11-04 17:15] LABS: MEAN PLATELET VOLUME 8.0 fL (7.4-11.0); RED CELL DISTRIBUTION WIDTH 13.3 % (11.6-16.5)
[2024-11-04 17:28] LABS: CREATININE 1.26 mg/dL (0.70-1.30); eGFR NON BLACK RACES 60 (>60)
[2024-11-04 18:03] VITALS: BMI 27.9
[2024-11-04] MEDS: AQUA MEPHYTON ADULT IV NR (18:12)
[2024-11-04] MEDS: NS IV NR (18:12)
[2024-11-04] MEDS: NS 1,000 ML IV 1,000 ML IV SCH (18:12)
[2024-11-04] MEDS: PROTONIX INJ 40 MG VIAL IVP SCH (18:13)
[2024-11-04] MEDS: CONSULT PHARMACY - POTASSIUM & MAGNESIUM XX SCH (18:13)
[2024-11-04] MEDS: KLOR-CON PO SCH (21:16)
[2024-11-04] MEDS: MAG-OX TAB PO SCH (21:16)
[2024-11-05 00:41] LABS: INR 2.40 (0.8-1.3)
[2024-11-05 06:06] LABS: MEAN PLATELET VOLUME 8.4 fL (7.4-11.0); RED CELL DISTRIBUTION WIDTH 13.3 % (11.6-16.5)
[2024-11-05 06:23] LABS: COR CA(FOR HYPOALB) 9.6 mg/dL (8.5-10.1); CREATININE 0.96 mg/dL (0.70-1.30); eGFR NON BLACK RACES > 60 (>60)
[2024-11-05] MEDS ORDERED: CONSULT PHARMACY - POTASSIUM & MAGNESIUM XX SCH (08:00)
[2024-11-05] MEDS: TOPROL XL PO SCH (08:49)
[2024-11-05] MEDS: NS 1,000 ML IV 1,000 ML with MAGNESIUM SULFATE 50% INJ VIAL 1 G IV SCH (08:49)
[2024-11-05] MEDS: REQUIP PO SCH (08:49)
[2024-11-05] MEDS ORDERED: PHARMACY CONSULT XX SCH (10:00)
--- NOTE | 2024-11-05 10:50 | CT ---
EXAM: ABDCMEN/PELVIS WITH CON HISTORY: GI bleed; COMPARISON: CT abdomen and pelvis 11/08/2022 TECHNIQUE: Multiple CT axial images of the abdomen and pelvis were obtained with IV contrast. Coronal and sagittal images were reconstructed. Dose reduction techniques included Automated Exposure Control (AEC) and adjustment of mA and kV. Angiography protocol was not used. FINDINGS: The bowel is not dilated. There is no wall thickening in the bowel or edema around the bowel. There are a few diverticula in the left colon. But there is no wall thickening or pericolonic edema to suggest acute diverticulitis. Minimal scarring in the right lower lobe and lingula unchanged from previous exam. No evidence for pneumonia or pleural effusion. Atherosclerotic calcification is present in the coronary arteries. But the proximal part of the ascending aorta was included on the study. It measures up to 4.5 cm; this is unchanged from 2022 however. A prosthetic aortic valve is noted. The liver is normal in size and configuration. The gallbladder has no edema around it. No calcified gallstones. The spleen is normal in size and shape. The adrenal glands are normal. The pancreas is normal. Renal enhancement is uniform and symmetric with no solid mass. There is no hydronephrosis or significant perirenal edema. The bladder has normal distention. It has no wall thickening or perivesical edema. Well-defined fluid collection in the right groin measures 4 cm; there are surgical clips at this location so it is likely a seroma. Unchanged from 2022. Moderate degenerative spondylitic changes are present in the spine. Left hip prosthesis is present. Median sternotomy fixation hardware is present. IMPRESSION: 1. No acute findings 2. Stable moderately dilated ascending aorta 3. Few colonic diverticula 4. Stable right groin seroma THIS IS AN ELECTRONICALLY VERIFIED FINAL REPORT 11/05/2024 10:33 AM - Electronically signed by Daern Hoover MD
[2024-11-05] MEDS: COUMADIN TAB 5 MG (JANTOVEN) PO SCH (10:59)
--- NOTE | 2024-11-05 11:18 | DR.H&P ---
H&P History & Physical for Day of: H&P Date: 11/04/24 Chief Complaint Chief Complaint: dark loose stools elevated INR History of Present Illness History of Present Illness: Patient is a 73-year-old male with a past medical history of CABG, AAA repair, mechanical heart valve, hypertension, CHF, diabetes, critically admitted from clinic due to elevated INR of 8 and reporting dark loose stools. In the clinic he was also hypotensive. Patient has been nonadherent to monthly monitoring of his INR. He also reports not eating as much recently. Labs/imaging: WBC 9.2, hemoglobin 12, platelets 182, sodium 142, potassium 2.8, creatinine 1.26, glucose 77. Patient was admitted for supratherapeutic INR, GI bleed, hypokalemia, hypomagnesemia. Will hold Coumadin and give patient IV vitamin K 2.5 mg x 1 dose. Will also get a Hemoccult. Will monitor blood pressure which is stable. Patient is able to tolerate diet will order. IV Protonix 40 mg twice daily. Order CT abdomen pelvis for further evaluation. Replete electrolytes per protocol. Restart home medications. Otherwise continue current treatment plan. Continue closely monitor and follow- up labs/imaging. Time spent for clinical assessment, reviewing labs/imaging, physical exam, decision making and documentation greater than 45 mins. Past Medical History Past Medical History: Arthritis, CHF, Diabetes, Dyslipidemia and Hypertension Additional Medical History: Valvular Heart Disease, Thoracic Aortic Aneurysm, BPH, Elevated PSA, Previous Blood Transfusion Past Surgical History Surgical History: AAA Repair, CABG/Valve Surgery, Ortho Surgery and Other Additional Surgical History: Left Hip Replacement, Bilateral Shoulder Surgery, Mechanical Heart Valve Family History Family Medical History: Cancer Social History Does patient currently use any type of tobacco product: Yes Type of Tobacco Use: Cigars Alcohol Use: DAILY Drug Use: None Allergies Allergies Allergy/AdvReac Type Severity Reaction Status Date / Time No Known Drug Allergies Allergy Unknown Verified 10/15/24 10:08 Labs 11/05/24 05:45 11/05/24 05:45 Labs: Laboratory WBC 7.6 X10^3/uL (3.6-10.0) 11/05/24 05:45 RBC 3.88 X10^6/uL (4.7-6.0) L 11/05/24 05:45 Hgb 12.3 g/dL (13.5-18.0) L 11/05/24 05:45 Hct 34.1 % (42.0-54.0) L 11/05/24 05:45 MCV 87.7 fL (80.0-100.0) 11/05/24 05:45 MCH 31.6 pg (27.0-34.0) 11/05/24 05:45 MCHC 36.0 g/dL (33.0-35.0) H 11/05/24 05:45 RDW 13.3 % (11.6-16.5) 11/05/24 05:45 Plt Count 171 X10^3/uL (150.0-450.0) 11/05/24 05:45 MPV 8.4 fL (7.4-11.0) 11/05/24 05:45 Neut % (Auto) 67.3 % (42.0-75.0) 11/05/24 05:45 Lymph % (Auto) 16.4 % (21.0-51.0) L 11/05/24 05:45 Isabella % (Auto) 9.3 % (0.0-13.0) 11/05/24 05:45 Eos % (Auto) 5.9 % (0.9-2.9) H 11/05/24 05:45 Baso % (Auto) 1.1 % (0.2-1.0) H 11/05/24 05:45 Neut # (Auto) 5.1 x10^3/uL (2.2-4.8) H 11/05/24 05:45 Lymph # (Auto) 1.2 X10^3/uL (1.3-2.9) L 11/05/24 05:45 Isabella # (Auto) 0.7 x10^3/uL (0.3-0.8) 11/05/24 05:45 Eos # (Auto) 0.4 x10^3/uL (0.0-0.2) H 11/05/24 05:45 Baso # (Auto) 0.1 X10^3/uL (0.0-0.1) 11/05/24 05:45 Absolute Nucleated RBC 0.0 /100WBC 11/05/24 05:45 PT 26.4 SECONDS (11.8-14.3) 11/05/24 00:27 INR Target Range - 11/05/24 00:27 INR 2.40 (0.8-1.3) H 11/05/24 00:27 Sodium 142 mmol/L (136-145) 11/05/24 05:45 Corrected Sodium TNP 11/05/24 05:45 Potassium 3.6 mmol/L (3.5-5.1) 11/05/24 05:45 Chloride 105 mmol/L (98-107) 11/05/24 05:45 Carbon Dioxide 33.5 mmol/L (21-32) H 11/05/24 05:45 BUN 16 mg/dL (7-18) 11/05/24 05:45 Creatinine 0.96 mg/dL (0.70-1.30) 11/05/24 05:45 Est GFR (MDRD) Af Amer > 60 (>60) 11/05/24 05:45 Est GFR (MDRD) Non-Af > 60 (>60) 11/05/24 05:45 Glucose 92 mg/dL (65-99) 11/05/24 05:45 Calcium 9.0 mg/dL (8.5-10.1) 11/05/24 05:45 Corrected Calcium 9.6 mg/dL (8.5-10.1) 11/05/24 05:45 Magnesium 1.7 mg/dL (2.0-2.9) L 11/05/24 05:45 Total Bilirubin 0.50 mg/dL (0.2-1.0) 11/05/24 05:45 AST 31 Units/L (15-37) 11/05/24 05:45 ALT 24 Units/L (12-78) 11/05/24 05:45 Alkaline Phosphatase 73 Units/L (46-116) 11/05/24 05:45 Total Protein 6.6 g/dL (6.4-8.2) 11/05/24 05:45 Albumin 3.3 g/dL (3.4-5.0) L 11/05/24 05:45 Globulin 3.3 g/dL (2.5-4.5) 11/05/24 05:45 Albumin/Globulin Ratio 1.0 Ratio (1.1-2.1) L 11/05/24 05:45 Review of Systems Constitutional: No Symptoms Reported Eyes: No Symptoms Reported ENT: No Symptoms Reported Respiratory: No Symptoms Reported Cardiovascular: No Symptoms Reported Gastrointestinal: Abdominal Pain and Diarrhea Genitourinary: No Symptoms Reported Musculoskeletal: No Symptoms Reported Skin: No Symptoms Reported Neurological: No Symptoms Reported Physical Exam Vital Signs: Vital Signs Temperature 98.1 F Pulse Rate [Left Brachial] 70 Respiratory Rate 17 Blood Pressure [Right Arm] 142/79 O2 Sat by Pulse Oximetry 96 Oriented: Normal Eyes: Normal Ear: Normal Nose: Normal Throat: Normal Respiratory: Clear Throughout Cardiovascular: Normal : Normal Auscultation: Bowel Sounds: Normal Palpation: Normal Tenderness: Normal Skin: Normal Musculoskeletal: Normal Psychiatric: Normal Mood Description: Calm and Appropriate Affect: Normal Speech Pattern: Clear and Appropriate Assessment/Plan (1) Supratherapeutic INR: Status: Acute Plan: Order IV vitamin K, hold Coumadin, repeat INR in the morning. (2) GI bleed: Qualifiers: GI bleed type/associated pathology: unspecified gastrointestinal hemorrhage type Qualified Code(s): K92.2 - Gastrointestinal hemorrhage, unspecified Status: Acute Plan: IV Protonix twice daily. Will get Hemoccult. (3) Hypokalemia: Status: Acute (4) Hypomagnesemia: Status: Acute (5) Type 2 diabetes mellitus: Qualifiers: Diabetes mellitus mcfp insulin use: without salvage determiner use Diabetes mellitus complication status: with other specified complication Qualified Code(s): E11.69 - Type 2 diabetes mellitus with other specified complication Status: None (6) Mixed hyperlipidemia: Status: None (7) Hypothyroidism: Qualifiers: Hypothyroidism type: unspecified Qualified Code(s): E03.9 - Hypothyroidism, unspecified Status: None (8) Essential hypertension: Status: None Review H&P Reviewed: Yes Patient was examined?: Yes
--- NOTE | 2024-11-05 11:28 | PCM.PROG ---
Progress Note Progress Note for Day of Date of Exam: 11/05/24 Subjective Subjective: Patient is a 73-year-old male with a past medical history of CABG, AAA repair, mechanical heart valve, hypertension, CHF, diabetes, admitted for supratherapeutic INR, possible GI bleed, electrolyte abnormalities. This morning he is resting in bed. No acute events overnight. He reports he did have some bowel movements however he did not notify nurse and we did not get a sample to test for blood. He reports that the stool was dark. Labs/imaging: WBC 7.6, hemoglobin 12.3, platelets 171, sodium 142, potassium 3.6, creatinine 0.96, glucose 92. Patient's INR has responded this morning to 2.4. He does have a mechanical valve with therapeutic range to be between 2.5-3.5. His hemoglobin has remained stable. I believe it is reasonable to restart his Coumadin since he has no signs of active bleeding. He was taking 7.5 mg daily, we will change it to 5 mg daily. We will review Hemoccult and CT abdomen pelvis when it is obtained and completed. Monitor blood pressure. IV Protonix 40 mg twice daily. Replete electrolytes per protocol. Home medications have been resumed. Otherwise continue current treatment plan. Continue closely monitor and follow- up labs/imaging. Time spent for clinical assessment, reviewing labs/imaging, physical exam, decision making and documentation greater than 45 mins. Past Medical Family Social History Allergies: Allergies No Known Drug Allergies Allergy (Unknown, Verified 10/15/24 10:08) Onset Date: 04/01/2019 Review of Systems ROS changes noted: see HPI Vital Signs and I&O's Vital Signs: Vital Signs Temperature 98.1 F Pulse Rate [Left Brachial] 70 Respiratory Rate 17 Blood Pressure [Right Arm] 142/79 O2 Sat by Pulse Oximetry 96 Intake and Output: Intake & Output 11/02/24 11/03/24 11/04/24 11/05/24 23:59 23:59 23:59 23:59 Intake Total 200 / 200 818 / 818 Balance 200 / 200 818 / 818 Physical Exam Oriented: Normal Eyes: Normal Ear: Normal Nose: Normal Throat: Normal Respiratory: Normal Cardiovascular: Normal : Normal Auscultation: Bowel Sounds: Normal Tenderness: Normal Skin: Normal Musculoskeletal: Normal Psychiatric: Normal Mood Description: Calm and Appropriate Affect: Normal Speech Pattern: Clear and Appropriate Laboratory and Diagnostics 11/05/24 05:45 11/05/24 05:45 Labs: Laboratory WBC 7.6 X10^3/uL (3.6-10.0) 11/05/24 05:45 RBC 3.88 X10^6/uL (4.7-6.0) L 11/05/24 05:45 Hgb 12.3 g/dL (13.5-18.0) L 11/05/24 05:45 Hct 34.1 % (42.0-54.0) L 11/05/24 05:45 MCV 87.7 fL (80.0-100.0) 11/05/24 05:45 MCH 31.6 pg (27.0-34.0) 11/05/24 05:45 MCHC 36.0 g/dL (33.0-35.0) H 11/05/24 05:45 RDW 13.3 % (11.6-16.5) 11/05/24 05:45 Plt Count 171 X10^3/uL (150.0-450.0) 11/05/24 05:45 MPV 8.4 fL (7.4-11.0) 11/05/24 05:45 Neut % (Auto) 67.3 % (42.0-75.0) 11/05/24 05:45 Lymph % (Auto) 16.4 % (21.0-51.0) L 11/05/24 05:45 Dorado % (Auto) 9.3 % (0.0-13.0) 11/05/24 05:45 Eos % (Auto) 5.9 % (0.9-2.9) H 11/05/24 05:45 Baso % (Auto) 1.1 % (0.2-1.0) H 11/05/24 05:45 Neut # (Auto) 5.1 x10^3/uL (2.2-4.8) H 11/05/24 05:45 Lymph # (Auto) 1.2 X10^3/uL (1.3-2.9) L 11/05/24 05:45 Dorado # (Auto) 0.7 x10^3/uL (0.3-0.8) 11/05/24 05:45 Eos # (Auto) 0.4 x10^3/uL (0.0-0.2) H 11/05/24 05:45 Baso # (Auto) 0.1 X10^3/uL (0.0-0.1) 11/05/24 05:45 Absolute Nucleated RBC 0.0 /100WBC 11/05/24 05:45 PT 26.4 SECONDS (11.8-14.3) 11/05/24 00:27 INR Target Range - 11/05/24 00:27 INR 2.40 (0.8-1.3) H 11/05/24 00:27 Sodium 142 mmol/L (136-145) 11/05/24 05:45 Corrected Sodium TNP 11/05/24 05:45 Potassium 3.6 mmol/L (3.5-5.1) 11/05/24 05:45 Chloride 105 mmol/L (98-107) 11/05/24 05:45 Carbon Dioxide 33.5 mmol/L (21-32) H 11/05/24 05:45 BUN 16 mg/dL (7-18) 11/05/24 05:45 Creatinine 0.96 mg/dL (0.70-1.30) 11/05/24 05:45 Est GFR (MDRD) Af Amer > 60 (>60) 11/05/24 05:45 Est GFR (MDRD) Non-Af > 60 (>60) 11/05/24 05:45 Glucose 92 mg/dL (65-99) 11/05/24 05:45 Calcium 9.0 mg/dL (8.5-10.1) 11/05/24 05:45 Corrected Calcium 9.6 mg/dL (8.5-10.1) 11/05/24 05:45 Magnesium 1.7 mg/dL (2.0-2.9) L 11/05/24 05:45 Total Bilirubin 0.50 mg/dL (0.2-1.0) 11/05/24 05:45 AST 31 Units/L (15-37) 11/05/24 05:45 ALT 24 Units/L (12-78) 11/05/24 05:45 Alkaline Phosphatase 73 Units/L (46-116) 11/05/24 05:45 Total Protein 6.6 g/dL (6.4-8.2) 11/05/24 05:45 Albumin 3.3 g/dL (3.4-5.0) L 11/05/24 05:45 Globulin 3.3 g/dL (2.5-4.5) 11/05/24 05:45 Albumin/Globulin Ratio 1.0 Ratio (1.1-2.1) L 11/05/24 05:45 Plan (1) Supratherapeutic INR: Status: Acute Plan: INR 2.4, restart coumadin. (2) GI bleed: Status: Acute Qualifiers: GI bleed type/associated pathology: unspecified gastrointestinal hemorrhage type Qualified Code(s): K92.2 - Gastrointestinal hemorrhage, unspecified Plan: IV Protonix twice daily. Will get Hemoccult. (3) Hypokalemia: Status: Acute (4) Hypomagnesemia: Status: Acute (5) Type 2 diabetes mellitus: Status: None Qualifiers: Diabetes mellitus intermediate teacher insulin use: without intermediate teacher use Diabetes mellitus complication status: with other specified complication Qualified Code(s): E11.69 - Type 2 diabetes mellitus with other specified complication (6) Mixed hyperlipidemia: Status: None (7) Hypothyroidism: Status: None Qualifiers: Hypothyroidism type: unspecified Qualified Code(s): E03.9 - Hypothyroidism, unspecified (8) Essential hypertension: Status: None
[2024-11-05] MEDS: OMNIPAQUE 350 mg/mL 100 mL BTL 100 ML ONE (13:27)
[2024-11-06 05:45] VITALS: O2SAT 97
[2024-11-06 06:47] LABS: MEAN PLATELET VOLUME 8.7 fL (7.4-11.0); RED CELL DISTRIBUTION WIDTH 13.2 % (11.6-16.5)
[2024-11-06 06:50] LABS: INR 1.42 (0.8-1.3)
[2024-11-06 07:05] LABS: COR CA(FOR HYPOALB) 9.0 mg/dL (8.5-10.1); CREATININE 0.87 mg/dL (0.70-1.30); eGFR NON BLACK RACES > 60 (>60)
[2024-11-06] MEDS ORDERED: CONSULT PHARMACY - POTASSIUM & MAGNESIUM XX SCH (08:00)
[2024-11-06] MEDS ORDERED: K-DUR TAB 20 MEQ PO SCH (09:00)
[2024-11-06 12:00] VITALS: BP 155/75; PULSE 86; RESP 20; TEMP 97.8
--- NOTE | 2024-11-10 10:33 | W.DIS.FURT ---
Summary of Discharge Discharge Summary of Date Date of Exam: 11/06/24 Admission Date Date of Admission: 11/04/24 Admission Diagnosis Hospital Course: Patient is a 73-year-old male with a past medical history of CABG, AAA repair, mechanical heart valve, hypertension, CHF, diabetes, admitted for supratherapeutic INR, possible GI bleed, electrolyte abnormalities. His hospital/treatment course included receiving IV vitamin K. We were eventually able to get a Hemoccult that was negative. He was receiving IV Protonix 40 mg twice daily. Home medication have been resumed. His hemoglobin remained stable. Patient responded well to treatments and symptoms significantly improved. He was discharged in stable condition. His Coumadin had been restarted. He is instructed to continue with p.o. Protonix and follow-up on Saturday in clinic to repeat his INR. Vital Signs: Vital Signs (72 hours) 11/04/24 13:59 11/04/24 16:15 11/04/24 16:30 Temperature 98.9 F Pulse Rate [Left Brachial] 83 Respiratory Rate 18 Blood Pressure 100/63 Blood Pressure [Left Arm] 124/60 Blood Pressure [Right Arm] O2 Sat by Pulse Oximetry 96 Oxygen Delivery Method Room Air Room Air 11/04/24 19:00 11/04/24 20:00 11/04/24 23:52 Temperature 98.1 F 97.8 F Pulse Rate [Left Brachial] 72 70 Respiratory Rate 19 16 Blood Pressure Blood Pressure [Left Arm] 130/62 141/68 Blood Pressure [Right Arm] O2 Sat by Pulse Oximetry 95 96 Oxygen Delivery Method Room Air Room Air Room Air 11/05/24 04:00 11/05/24 07:00 11/05/24 08:00 Temperature 98.1 F 97.8 F Pulse Rate [Left Brachial] 70 78 Respiratory Rate 17 20 Blood Pressure Blood Pressure [Left Arm] 137/63 Blood Pressure [Right Arm] 142/79 O2 Sat by Pulse Oximetry 96 98 Oxygen Delivery Method Room Air Room Air Room Air 11/05/24 12:00 11/05/24 16:00 11/05/24 19:00 Temperature 97.7 F 97.5 F L Pulse Rate [Left Brachial] 64 66 Respiratory Rate 20 20 Blood Pressure Blood Pressure [Left Arm] 139/67 133/64 Blood Pressure [Right Arm] O2 Sat by Pulse Oximetry 97 98 Oxygen Delivery Method Room Air Room Air Room Air 11/05/24 20:00 11/06/24 00:00 11/06/24 04:00 Temperature 97.9 F 98.1 F 98 F Pulse Rate [Left Brachial] 64 60 79 Respiratory Rate 20 19 19 Blood Pressure Blood Pressure [Left Arm] 130/62 138/66 153/72 Blood Pressure [Right Arm] O2 Sat by Pulse Oximetry 98 96 97 Oxygen Delivery Method Room Air Room Air Room Air 11/06/24 07:00 Temperature Pulse Rate [Left Brachial] Respiratory Rate Blood Pressure Blood Pressure [Left Arm] Blood Pressure [Right Arm] O2 Sat by Pulse Oximetry Oxygen Delivery Method Room Air Labs: Laboratory Last Values WBC 8.1 X10^3/uL (3.6-10.0) 11/06/24 05:15 RBC 3.41 X10^6/uL (4.7-6.0) L 11/06/24 05:15 Hgb 10.9 g/dL (13.5-18.0) L 11/06/24 05:15 Hct 30.0 % (42.0-54.0) L 11/06/24 05:15 MCV 87.8 fL (80.0-100.0) 11/06/24 05:15 MCH 31.9 pg (27.0-34.0) 11/06/24 05:15 MCHC 36.3 g/dL (33.0-35.0) H 11/06/24 05:15 RDW 13.2 % (11.6-16.5) 11/06/24 05:15 Plt Count 176 X10^3/uL (150.0-450.0) 11/06/24 05:15 MPV 8.7 fL (7.4-11.0) 11/06/24 05:15 Neut % (Auto) 72.3 % (42.0-75.0) 11/06/24 05:15 Lymph % (Auto) 13.3 % (21.0-51.0) L 11/06/24 05:15 Carbon % (Auto) 8.0 % (0.0-13.0) 11/06/24 05:15 Eos % (Auto) 5.3 % (0.9-2.9) H 11/06/24 05:15 Baso % (Auto) 1.1 % (0.2-1.0) H 11/06/24 05:15 Neut # (Auto) 5.9 x10^3/uL (2.2-4.8) H 11/06/24 05:15 Lymph # (Auto) 1.1 X10^3/uL (1.3-2.9) L 11/06/24 05:15 Carbon # (Auto) 0.6 x10^3/uL (0.3-0.8) 11/06/24 05:15 Eos # (Auto) 0.4 x10^3/uL (0.0-0.2) H 11/06/24 05:15 Baso # (Auto) 0.1 X10^3/uL (0.0-0.1) 11/06/24 05:15 Absolute Nucleated RBC 0.1 /100WBC 11/06/24 05:15 PT 17.5 SECONDS (11.8-14.3) 11/06/24 05:15 INR Target Range - 11/06/24 05:15 INR 1.42 (0.8-1.3) H 11/06/24 05:15 Sodium 141 mmol/L (136-145) 11/06/24 05:15 Corrected Sodium TNP 11/06/24 05:15 Potassium 3.3 mmol/L (3.5-5.1) L 11/06/24 05:15 Chloride 107 mmol/L (98-107) 11/06/24 05:15 Carbon Dioxide 28.5 mmol/L (21-32) 11/06/24 05:15 BUN 14 mg/dL (7-18) 11/06/24 05:15 Creatinine 0.87 mg/dL (0.70-1.30) 11/06/24 05:15 Est GFR (MDRD) Af Amer > 60 (>60) 11/06/24 05:15 Est GFR (MDRD) Non-Af > 60 (>60) 11/06/24 05:15 Glucose 91 mg/dL (65-99) 11/06/24 05:15 Calcium 8.2 mg/dL (8.5-10.1) L 11/06/24 05:15 Corrected Calcium 9.0 mg/dL (8.5-10.1) 11/06/24 05:15 Magnesium 1.8 mg/dL (2.0-2.9) L 11/06/24 05:15 Total Bilirubin 0.40 mg/dL (0.2-1.0) 11/06/24 05:15 AST 27 Units/L (15-37) 11/06/24 05:15 ALT 27 Units/L (12-78) 11/06/24 05:15 Alkaline Phosphatase 67 Units/L (46-116) 11/06/24 05:15 Total Protein 5.9 g/dL (6.4-8.2) L 11/06/24 05:15 Albumin 3.0 g/dL (3.4-5.0) L 11/06/24 05:15 Globulin 2.9 g/dL (2.5-4.5) 11/06/24 05:15 Albumin/Globulin Ratio 1.0 Ratio (1.1-2.1) L 11/06/24 05:15 Stl Occult Blood (IFOB) Negative (NEGATIVE) 11/06/24 09:21 Reason For Visit: ELEVATED INR, GI BLEED, FAILED OUTPT TREATMENT Discharge Date Discharge Date: 11/06/24 Discharge Diagnosis All Active Problems (Updated 06/26/22 @ 09:08 by Andrea Tavera MD) Hypomagnesemia (Acute) Hypokalemia (Acute) GI bleed (Acute) Supratherapeutic INR (Acute) Edema (Acute) Cellulitis of foot, left (Acute) Cellulitis of foot, left (Acute) Squamous cell carcinoma, penis (Acute) Penile pain (Acute) Unsteady gait (Acute) Left ureteral calculus (Acute) Abdominal pain (Acute) Hematuria (Acute) Annual physical exam (Acute) Mechanical heart valve present (Chronic) Plan of Treatment: Continue with present treatment and follow up plan. Pt is to keep follow up appointment as instructed and take medications as ordered. Discharge Medications Discharge Medications: No Known Drug Allergies Allergy (Unknown, Verified 10/15/24 10:08) Discharge Plan Discharge Plan Hospital Course: Patient is a 73-year-old male with a past medical history of CABG, AAA repair, mechanical heart valve, hypertension, CHF, diabetes, admitted for supratherapeutic INR, possible GI bleed, electrolyte abnormalities. His hospital/treatment course included receiving IV vitamin K. We were eventually able to get a Hemoccult that was negative. He was receiving IV Protonix 40 mg twice daily. Home medication have been resumed. His hemoglobin remained stable. Patient responded well to treatments and symptoms significantly improved. He was discharged in stable condition. His Coumadin had been restarted. He is instructed to continue with p.o. Protonix and follow-up on Saturday in clinic to repeat his INR. Patient Disposition: HOME, SELF-CARE Condition: Stable Health Concerns: Post Hospitalization: new medications and changes needed to prevent readmission or further decline. Pt educated and given instructions on all concerns. Care Plan Goals: Problem: Pain/Alteration in Comfort Goal: Improve/ Resolve Pain; Achieve Pain Tolerance Instructions: Take pain medications as prescribed. Contact your primary care provider if your pain is unrelieved or worsens. Follow up with primary care provider as directed. Plan of Treatment: Continue with present treatment and follow up plan. Pt is to keep follow up appointment as instructed and take medications as ordered. Prescriptions: New warfarin [Jantoven] 5 mg Tablet 5 mg PO DAILY Qty: 30 0RF Continued glipizide 2.5 mg tablet extended release 24hr 2.5 mg PO QDAY Qty: 90 1RF (DME) True Metrix Glucose Test Strip Strip See Rx Instructions .ROUTE .COMPLEX Qty: 300 3RF Dose Instruction: TEST BLOOD SUGAR DIRECTED Rx Instructions: TEST BLOOD SUGAR DIRECTED meloxicam 15 mg tablet 15 mg PO QDAY Qty: 90 1RF furosemide 40 mg tablet 40 mg PO QDAY PRN (Reason: edema) 90 Days Qty: 90 1RF enoxaparin [Lovenox] 40 mg/0.4 mL syringe 40 mg subcut Q12H Qty: 12 0RF gabapentin 600 mg tablet 600 mg PO TID PRN (Reason: pain) Qty: 90 3RF levothyroxine 50 mcg tablet 50 mcg PO QDAY Qty: 90 1RF metformin 500 mg tablet 500 mg PO BID Qty: 180 1RF rosuvastatin 20 mg tablet 20 mg PO QPM Qty: 90 1RF ropinirole 0.25 mg tablet 0.25 mg PO QDAY Qty: 90 1RF metoprolol succinate 25 mg tablet extended release 24 hr 25 mg PO QDAY Qty: 90 1RF warfarin 7.5 mg tablet 7.5 mg PO QDAY 90 Days Qty: 90 1RF Changed pantoprazole 40 mg tablet,delayed release (DR/EC) 40 mg PO BID Qty: 90 1RF Orders to Discharge Patient Discharge Orders: Discharge (Routine); Ordered 11/06/24 Ordered By: Andrea Tavera Follow ups/Referrals Follow ups/Referrals: Andrea Tavera MD [Primary Care Provider, MEDICAL] - 11/17/24 3:40 pm Instructions Instructions: Hypomagnesemia, Hypokalemia, Lower Gastrointestinal Bleeding Activity Restrictions/Additional Instructions: Follow up on Saturday Stand Alone Forms: Excuse From Work or School, Find Help Web Site, Post Hospital Follow Up Care Print Language: ARABIC
== END 2024-11-06 12:00 | disposition home or self-care (01) ==
LOC: MED/SURG
PROVIDERS: ADMIT Family Medicine; ATTEND Family Medicine
DX: K92.2 Gastrointestinal hemorrhage, unspecified; I95.89 Other hypotension; E03.8 Other specified hypothyroidism; I10 Essential (primary) hypertension; R79.1 Abnormal coagulation profile; I25.810 Atherosclerosis of coronary artery bypass graft(s) without angina pectoris; Z95.2 Presence of prosthetic heart valve; E11.69 Type 2 diabetes mellitus with other specified complication; E83.42 Hypomagnesemia; E78.2 Mixed hyperlipidemia; E83.51 Hypocalcemia; E86.0 Dehydration; Z79.01 Long term (current) use of anticoagulants